=== PATIENT | female | born 1940 | race Caucasian/White ===

== ENCOUNTER 2024-02-18 15:39 | Inpatient (IN) ==
[2024-02-18] MEDS ORDERED: MoRPHine SULFATE 2 MG/ML CARP IV PRN ×2 (15:55→17:50)
[2024-02-18] MEDS: MoRPHine SULFATE 4 MG/ML 1 ML CARP\\VIAL IV PRN (16:06)
--- NOTE | 2024-02-18 16:06 | Emergency Department Note ---
History of Present Illness General Chief complaint: Fall Stated complaint: FALL Time Seen by Provider: 02/18/24 15:48 History of Present Illness Provider complaint: Right hip pain Onset (ago): hour(s) 1 Location: lower extremity and right 83-year-old female presents emergency department for right hip pain. Patient reports she fell approximate 1 hour ago by tripping over her heater. Patient denies hitting her head. No blood thinners. Home Medications Medication Instructions Recorded Confirmed Type alprazolam 0.25 mg tablet 0.25 mg PO TID PRN Anxiety 02/18/24 02/18/24 History amlodipine 2.5 mg tablet 2.5 mg PO QPM 02/18/24 02/18/24 History amlodipine 2.5 mg tablet 5 mg PO QAM 02/18/24 02/18/24 History aspirin 81 mg tablet,delayed 81 mg PO DAILY 02/18/24 02/18/24 History release benzonatate 200 mg capsule 200 mg PO TID 02/18/24 02/18/24 History buspirone 7.5 mg tablet 7.5 mg PO BID 02/18/24 02/18/24 History esomeprazole magnesium 40 mg 40 mg PO DAILY 02/18/24 02/18/24 History capsule,delayed release ibandronate 150 mg tablet 150 mg PO MO 02/18/24 02/18/24 History levothyroxine 50 mcg tablet 50 mcg PO DAILY 02/18/24 02/18/24 History metoprolol tartrate 25 mg tablet 25 mg PO BID 02/18/24 02/18/24 History rosuvastatin 5 mg tablet 5 mg PO 3XWK 02/18/24 02/18/24 History Allergies Allergy/AdvReac Type Severity Reaction Status Date / Time celecoxib Allergy Unknown hives Verified 02/18/24 17:10 penicillin G Allergy Unknown HIVES Verified 02/18/24 17:10 Sulfa (Sulfonamide Allergy Unknown HIVES Verified 02/18/24 17:10 Antibiotics) aspirin AdvReac Unknown ACID REFLUX Verified 02/18/24 17:10 blue dye AdvReac Unknown nausea and Unverified 02/18/24 17:10 vomiting duloxetine AdvReac Unknown nausea and Unverified 02/18/24 17:10 vomiting NSAIDS (Non-Steroidal AdvReac Unknown ACID REFLUX Verified 02/18/24 17:10 Anti-Inflamma Past Med/Surg History Problem List Femur fracture, right (Acute) Post-operative state (Acute 07/27/14) Medical History HLD (hyperlipidemia) HTN (hypertension) GERD (gastroesophageal reflux disease) Surgical History No pertinent past surgical history Social History Smoking Status: Never smoker Preferred Language: Filipino Feels Safe at Home: Yes Physical Exam Vital Signs Vital Signs - 24 hr 02/18/24 15:18 02/18/24 15:58 Temperature 36.7 C Temperature Source Oral Pulse Rate 72 70 Respiratory Rate 20 Blood Pressure 161/91 H Blood Pressure Mean 114 Pulse Oximetry 97 Oxygen Delivery Method Room Air Sepsis Recent Fever Within 48 Hours No Sepsis New/Unexplained Change in Mental Status No Sepsis Action Taken by Nursing No Action Required Physical Exam GENERAL: oriented to person, place, and time. appears well-developed and well- nourished. HENT: Exam performed. - Head: Normocephalic and atraumatic. EYES: Conjunctivae and EOM are normal. Right eye exhibits no discharge. Left eye exhibits no discharge. No scleral icterus. NECK: Normal range of motion. Neck supple. No JVD present. No pain on palpation of the C-spine. CV: Normal rate, regular rhythm, normal heart sounds and intact distal pulses. There is no peripheral edema. Palpable radial pulses bue. PULM/CHEST: Effort normal and breath sounds normal. No respiratory distress. No stridor. no wheezes. no rales. ABD: The abdomen is soft. There is no tenderness. MUSC: Pain on palpation of the right hip. Deformity of the right hip and femur. Palpable DP and PT pulse. NEURO: Motor and sensation grossly intact. Course Course 1548: The patient was evaluated in room B7. A complete history and physical exam was performed Cardiac monitoring: An order was placed for continuous cardiac monitoring. The monitor shows a rate of 70 with sinus rhythm interpreted by me 1651: Vital signs stable. Imaging shows right proximal femur fracture. Sent the images to Dr. Bryant via [place] text who reviewed them and agrees with plan to admit to medicine with orthopedics on consult. Administered Medications Morphine Sulfate (Morphine Sulfate 4 Mg/Ml 1 Ml Carp\Vial) 4 mg IV Q1H PRN PRN Reason: Severe Pain (Rating 7,8,9,10) Stop: 03/03/24 15:54 Last Admin: 02/18/24 16:06 Dose: 4 mg Documented By: LEESA Medical Decision Making Laboratory Data Attestation: I reviewed the patient's lab results. 02/18/24 16:04 02/18/24 16:04 Lab Results 02/18/24 02/18/24 Range/Units 16:04 Unknown WBC 7.60 (4.8-10.8) K/ul RBC 4.69 (4.20-5.40) M/uL Hgb 15.1 (12.0-16.0) g/dl Hct 43.5 (37.0-47.0) % MCV 92.8 (80.0-100.0) fL MCH 32.2 (25.0-34.0) pg MCHC 34.7 (32.0-36.0) g/dL RDW Std Deviation 40.0 (36.4-46.3) fL RDW Coeff of Angela 11.8 (11.5-14.5) % Plt Count 218 (130-400) K/uL MPV 10.1 (9.4-12.4) fL Immature Gran % (Auto) 0.4 % Neut % (Auto) 58.6 % Lymph % (Auto) 29.9 % Rolette % (Auto) 8.6 % Eos % (Auto) 1.8 % Baso % (Auto) 0.7 % Neut # (Auto) 4.46 (1.40-6.50) K/uL Lymph # (Auto) 2.27 (1.20-3.40) K/uL Rolette # (Auto) 0.65 H (0.11-0.59) K/uL Eos # (Auto) 0.14 (0.00-0.50) K/uL Baso # (Auto) 0.05 (0.00-0.20) K/uL Immature Gran # (Auto) 0.03 (0.01-0.20) K/uL PT 10.8 (9.0-12.0) Seconds INR 1.0 (0.9-1.1) APTT 26 (21-31) Seconds PTT Ratio 1.0 Sodium 138 (136-145) mmol/L Potassium 3.6 (3.5-5.1) mmol/L Chloride 100 (98-107) mmol/L Carbon Dioxide 28 (21-32) mmol/L Anion Gap 10 (3-11) BUN 13 (6-23) mg/dl Creatinine 0.55 L (0.6-1.2) mg/dl Est Cr Clr Drug Dosing Not Reportable Est GFR ( Amer) 99.8 ml/min Est GFR (Non-Af Amer) 86.1 ml/min BUN/Creatinine Ratio 23.6 H (10-20) Glucose 123 H (70-99(Fasting)) mg/dl Calcium 9.5 (8.6-10.3) mg/dl Total Bilirubin 1.9 H (0.2-1.0) mg/dl AST 22 (13-39) U/L ALT 17 (7-52) U/L Alkaline Phosphatase 44 (34-104) U/L Total Protein 7.7 (6.0-8.3) gm/dl Albumin 4.4 (3.4-5.0) gm/dl Globulin 3.3 (2.5-4.0) gm/dl Albumin/Globulin Ratio 1.3 (0.9-2) Urine Color Yellow Urine Appearance Clear (Clear) Urine pH 5.5 (4.5-7.5) Ur Specific [place] 1.018 (1.000-1.030) Urine Protein Negative (Negative) Urine Glucose (UA) Negative (Negative) Urine Ketones 1+ H (Negative) Urine Blood Negative (Negative) Urine Nitrite Negative (Negative) Urine Bilirubin Negative (Negative) Urine Urobilinogen Negative (Negative) Ur Leukocyte Esterase 1+ H (Negative) Urine WBC (Auto) 0-5 (0-5) /hpf Urine RBC (Auto) 0-2 (0-2) /hpf U Hyaline Cast (Auto) 0-2 (0-2) /lpf U Epithel Cells (Auto) 0-2 (0-2) /hpf Urine Bacteria (Auto) None Seen (None Seen) Imaging Data Attestation: I personally reviewed and interpreted this imaging study as follows: My Impression: Pelvis x-ray: Right proximal femur fracture that is angulated and displaced Radiologist's Impression: Chest X-Ray 02/18/24 15:56 SUPINE AP CHEST RADIOGRAPH CLINICAL HISTORY: Preoperative evaluation. COMPARISON STUDY: Chest radiograph May 14, 2014. FINDINGS: Lung volumes are normal. Lungs are clear. There is no pneumothorax or pleural effusion on supine exam. Cardiac size is normal. Mediastinal contours are normal. There is no evidence for pulmonary edema. IMPRESSION: No acute cardiopulmonary findings. ACT 112: Negative or not required by law. Electronically signed by: Brock Bar M.D. 02/18/2024 4:27 PM Femur X-Ray 02/18/24 15:57 XR femur RT 2V routine CLINICAL HISTORY: fall COMPARISON: Right knee radiographs July 27, 2014. FINDINGS: There is an acute moderately displaced, significantly angulated intertrochanteric/subtrochanteric fracture of the right femur. Associated soft tissue swelling is present. There is no distal right femoral fracture. Right knee arthroplasty is intact. No proximal right tibial or fibular fracture is present. IMPRESSION: 1. Acute displaced angulated intertrochanteric/subtrochanteric fracture of the right femur. 2. No distal right femoral fracture. Intact total right knee arthroplasty. ACT 112: Negative or not required by law. Electronically signed by: Brock Bar M.D. 02/18/2024 4:34 PM Pelvis X-Ray 02/18/24 15:57 XR pelvis 1-2V routine CLINICAL HISTORY: fall COMPARISON: None FINDINGS: Sacroiliac joints and symphysis pubis are intact. There are no acute fractures within the pelvis or left hip. There is an acute moderately displaced, significantly angulated intertrochanteric/subtrochanteric fracture of the right femur. IMPRESSION: Acute moderately displaced, significantly angulated intertrochanteric/subtrochanteric fracture of the right femur. ACT 112: Negative or not required by law. Electronically signed by: Brock Bar M.D. 02/18/2024 4:33 PM ECG Data Attestation: I personally reviewed and interpreted this ECG as follows: Rate (beats per minute): 75 Rhythm: + normal sinus ECG Intervals/blocks: + Normal RI and + Normal QT-c ECG ST segments: + Normal ST segments [facility] Narrative 1548: The patient was evaluated in room B7. A complete history and physical exam was performed Cardiac monitoring: An order was placed for continuous cardiac monitoring. The monitor shows a rate of 70 with sinus rhythm interpreted by me 1651: Vital signs stable. Imaging shows right proximal femur fracture. Sent the images to Dr. Bryant via [place] text who reviewed them and agrees with plan to admit to medicine with orthopedics on consult. Impression & Plan Femur fracture, right Discharge Plan Visit Data Chief Complaint: Fall Stated Complaint: FALL ED Provider: Jagdish Blackwell Discharge Problem: Femur fracture, right Patient Disposition: Admitted As Inpatient Forms Stand Alone Forms: [facility] Prescriptions Prescriptions: No Action benzonatate 200 mg capsule 200 mg PO TID amlodipine 2.5 mg tablet 2.5 mg PO QPM amlodipine 2.5 mg tablet 5 mg PO QAM aspirin 81 mg tablet,delayed release (DR/EC) 81 mg PO DAILY alprazolam 0.25 mg tablet 0.25 mg PO TID PRN (Reason: Anxiety) levothyroxine 50 mcg tablet 50 mcg PO DAILY esomeprazole magnesium 40 mg capsule,delayed release(DR/EC) 40 mg PO DAILY buspirone 7.5 mg tablet 7.5 mg PO BID rosuvastatin 5 mg tablet 5 mg PO 3XWK metoprolol tartrate 25 mg tablet 25 mg PO BID ibandronate 150 mg tablet 150 mg PO MO Rx Instructions: Takes on Referrals Referrals: Crystal Sumner D.O. [Outside Practitioners] - Discharge Problem: Femur fracture, right Qualifiers: Encounter type: initial encounter Femur location: unspecified portion of femur Fracture type: closed Fracture morphology: unspecified fracture morphology Q ualified Code(s): S72.91XA - Unspecified fracture of right femur, initial encounter for closed fracture
[2024-02-18 16:12] LABS: Appearance Urine Clear (Clear); Bacteria Urine Automated None Seen (None Seen); Bilirubin Urine Negative (Negative); Blood Urine Negative (Negative); Cast Urine Automated 0-2 /lpf (0-2); Color Urine Yellow; Epithelial Cell Urine Auto 0-2 /hpf (0-2); Glucose Urine UA Negative (Negative); Ketones Urine 1+ (Negative); Leukocyte Esterase Urine 1+ (Negative); Nitrite Urine Negative (Negative); Protein Urine Negative (Negative); RBC Urine Automated 0-2 /hpf (0-2); Specific Gravity Urine 1.018 (1.000-1.030); Urobilinogen Urine Negative (Negative); WBC Urine Automated 0-5 /hpf (0-5); pH Urine 5.5 (4.5-7.5)
[2024-02-18 16:28] LABS: Basophils # (auto) 0.05 K/uL (0.00-0.20); Basophils % (auto) 0.7 %; Eosinophils # (auto) 0.14 K/uL (0.00-0.50); Eosinophils % (auto) 1.8 %; Hematocrit (blood only) 43.5 % (37.0-47.0); Hemoglobin 15.1 g/dl (12.0-16.0); Immature Granulocytes # (auto) 0.03 K/uL (0.01-0.20); Immature Granulocytes % (auto) 0.4 %; Lymphocytes # (auto) 2.27 K/uL (1.20-3.40); Lymphocytes % (auto) 29.9 %; Mean Corpuscular Hemoglobin 32.2 pg (25.0-34.0); Mean Corpuscular Hgb Conc 34.7 g/dL (32.0-36.0); Mean Corpuscular Volume 92.8 fL (80.0-100.0); Mean Platelet Volume 10.1 fL (9.4-12.4); Monocytes # (auto) 0.65 K/uL (0.11-0.59); Monocytes % (auto) 8.6 %; Neutrophils # (auto) 4.46 K/uL (1.40-6.50); Neutrophils % (auto) 58.6 %; Platelet Count 218 K/uL (130-400); RDW Coefficient of Variation 11.8 % (11.5-14.5); Red Blood Count 4.69 M/uL (4.20-5.40)
--- NOTE | 2024-02-18 16:29 | XRay Report ---
SUPINE AP CHEST RADIOGRAPH CLINICAL HISTORY: Preoperative evaluation. COMPARISON STUDY: Chest radiograph May 14, 2014. FINDINGS: Lung volumes are normal. Lungs are clear. There is no pneumothorax or pleural effusion on s upine exam. Cardiac size is normal. Mediastinal contours are normal. There is no evidence for pulmona ry edema. IMPRESSION: No acute cardiopulmonary findings. ACT 112: Negative or not required by law. Electronically signed by: Brock Bar M.D. 02/18/2024 4:27 PM
--- NOTE | 2024-02-18 16:34 | XRay Report ---
XR pelvis 1-2V routine CLINICAL HISTORY: fall COMPARISON: None FINDINGS: Sacroiliac joints and symphysis pubis are intact. There are no acute fractures within the pelvis or left hip. There is an acute moderately displaced, significantly angulated intertrochanteric /subtrochanteric fracture of the right femur. IMPRESSION: Acute moderately displaced, significantly angulated intertrochanteric/subtrochanteric fra cture of the right femur. ACT 112: Negative or not required by law. Electronically signed by: Brock Bar M.D. 02/18/2024 4:33 PM
--- NOTE | 2024-02-18 16:35 | XRay Report ---
XR femur RT 2V routine CLINICAL HISTORY: fall COMPARISON: Right knee radiographs July 27, 2014. FINDINGS: There is an acute moderately displaced, significantly angulated intertrochanteric/subtroch anteric fracture of the right femur. Associated soft tissue swelling is present. There is no distal r ight femoral fracture. Right knee arthroplasty is intact. No proximal right tibial or fibular fractur e is present. IMPRESSION: 1. Acute displaced angulated intertrochanteric/subtrochanteric fracture of the right femur. 2. No distal right femoral fracture. Intact total right knee arthroplasty. ACT 112: Negative or not required by law. Electronically signed by: Brock Bar M.D. 02/18/2024 4:34 PM
[2024-02-18 16:43] LABS: Alanine Aminotransferase 17 U/L (7-52); Albumin Globulin Ratio 1.3 (0.9-2); Albumin Level 4.4 gm/dl (3.4-5.0); Alkaline Phosphatase 44 U/L (34-104); Anion Gap 10 (3-11); Aspartate Aminotransferase 22 U/L (13-39); BUN Creatinine Ratio 23.6 (10-20); Bilirubin,Total 1.9 mg/dl (0.2-1.0); Blood Urea Nitrogen 13 mg/dl (6-23); Calcium 9.5 mg/dl (8.6-10.3); Carbon Dioxide 28 mmol/L (21-32); Chloride 100 mmol/L (98-107); Est GFR (African American) 99.8 ml/min; Est GFR (Non-African American) 86.1 ml/min; Globulin 3.3 gm/dl (2.5-4.0); Glucose 123 mg/dl (70-99(Fasting)); Potassium 3.6 mmol/L (3.5-5.1); Sodium 138 mmol/L (136-145); Total Protein 7.7 gm/dl (6.0-8.3)
[2024-02-18 16:57] LABS: Partial Thromboplastin Time 26 Seconds (21-31); Prothrombin Time 10.8 Seconds (9.0-12.0)
--- NOTE | 2024-02-18 17:58 | History & Physical Report ---
Date of Service February 18, 2024 Assessment & Plan (1) Femur fracture, right: Plan: Patient presents with mechanical fall 1 hour prior to presentation Patient reports that her knee buckled and she fell down. CBC was unremarkable. CMP revealed mild elevation of bilirubin to 1.9. Pelvic x-ray showed acute mildly displaced, significantly angulated intertrochanteric/subtrochanteric fracture of right femur. Chest x-rayno acute cardiopulmonary finding EKG personally reviewed normal sinus rhythm with occasional PVC Pain control with Tylenol, oxycodone and morphine N.p.o. from midnight for possible intervention tomorrow Orthopedic on board; PT OT after intervention Patient denies chest pain; she is saturating well in room air. Chest x-ray and EKG are unremarkable for any significant finding. She appears well compensated. She appears to be at average risk for lu and post procedure complication. Chronic conditions; Hypertensioncontinue amlodipine, metoprolol Hypothyroidismcontinue levothyroxine Hyperlipidemia continue rosuvastatin Anxiety disordercontinue home meds Time spent evaluating patient, direct bedside care, chart review, placing orders, interpretation of diagnostic studies, discussion with consultants, patient, and family members, as well as other required patient management activities is 75 minutes Please note the above document was generated using voice recognition software. It may contain grammatical, syntax or spelling errors. Any formal questions or concerns about the content, text or information contained within the body of this dictation should be directly addressed to the provider for clarification History of Present Illness Chief Complaint: Mechanical fall Right hip pain Primary Care Provider: Jose Luis Gorman DO History obtained from interview with the patient and chart review. Past medical history of hypertension, anxiety, hypothyroidism, hyperlipidemia Patient presents with mechanical fall 1 hour prior to presentation Patient reports that her knee buckled and she fell down. She started to have pain on her right hip and came to the ED. She denies injuries to any other body part, did not hit her head or lose consciousness. She reports some tingling sensation over her right thigh; denies any other focal weakness/numbness. She denies fever, chills, chest pain, shortness of breath or abdominal pain. On presentation to the ED, she was hypertensive ,saturating well in room air. CBC was unremarkable. CMP revealed mild elevation of bilirubin to 1.9. Pelvic x-ray showed acute mildly displaced, significantly angulated intertrochanteric/subtrochanteric fracture of right femur. ED contacted on-call orthopedic; recommended admission for possible intervention. Patient was referred to be admitted under medicine service. Past medical history as above Past surgical history; history of knee replacement, section, hysterectomy Social history; used to smoke occasionally; quit 50 years ago. Does not drink alcohol Family history; no pertinent family history Allergies Allergy/AdvReac Type Severity Reaction Status Date / Time celecoxib Allergy Unknown hives Verified 02/18/24 17:10 penicillin G Allergy Unknown HIVES Verified 02/18/24 17:10 Sulfa (Sulfonamide Allergy Unknown HIVES Verified 02/18/24 17:10 Antibiotics) aspirin AdvReac Unknown ACID REFLUX Verified 02/18/24 17:10 blue dye AdvReac Unknown nausea and Unverified 02/18/24 17:10 vomiting duloxetine AdvReac Unknown nausea and Unverified 02/18/24 17:10 vomiting NSAIDS (Non-Steroidal AdvReac Unknown ACID REFLUX Verified 02/18/24 17:10 Anti-Inflamma Home Medications Medication Instructions Recorded Confirmed Type alprazolam 0.25 mg tablet 0.25 mg PO TID PRN Anxiety 02/18/24 02/18/24 History amlodipine 2.5 mg tablet 2.5 mg PO QPM 02/18/24 02/18/24 History amlodipine 2.5 mg tablet 5 mg PO QAM 02/18/24 02/18/24 History aspirin 81 mg tablet,delayed 81 mg PO DAILY 02/18/24 02/18/24 History release benzonatate 200 mg capsule 200 mg PO TID 02/18/24 02/18/24 History buspirone 7.5 mg tablet 7.5 mg PO BID 02/18/24 02/18/24 History esomeprazole magnesium 40 mg 40 mg PO DAILY 02/18/24 02/18/24 History capsule,delayed release ibandronate 150 mg tablet 150 mg PO MO 02/18/24 02/18/24 History levothyroxine 50 mcg tablet 50 mcg PO DAILY 02/18/24 02/18/24 History metoprolol tartrate 25 mg tablet 25 mg PO BID 02/18/24 02/18/24 History rosuvastatin 5 mg tablet 5 mg PO 3XWK 02/18/24 02/18/24 History Past Med/Surg History Problem List Femur fracture, right (Acute) Post-operative state (Acute 07/27/14) Medical History HLD (hyperlipidemia) HTN (hypertension) GERD (gastroesophageal reflux disease) Surgical History No pertinent past surgical history Social History Smoking Status: Never smoker Preferred Language: [place] Citizen Feels Safe at Home: Yes Review of Systems Review of Systems: All systems reviewed & are unremarkable except as noted in Subjective Physical Exam Physical Exam: Constitutional: Alert oriented x 3; not in distress. Respiratory: Bilateral vesicular breath sound Cardiovascular: RRR, no murmur, no edema Vessels: no JVD or carotid bruit Chest: normal inspection of chest Abdomen: normal bowel sounds, soft, nontender, no hepatosplenomegaly Musculoskeletal: Swelling present on her right thigh; her leg is externally rotated. Pedal pulse intact Skin: no rashes, warm and dry normal turgor Neurologic: PERRL, EOMI, accommodation nl, no face palsy, no dysarthria CN's II- XI intact bilaterally and moves all extremities Psychiatric: A+Ox3, euthymic affect Results & Data Results & Data Vital Signs (Past 12 Hours) Vital Signs Temp Pulse Resp BP Pulse Ox O2 Del Method 02/18/24 15:58 70 02/18/24 15:18 36.7 C 72 20 161/91 H 97 Room Air (1) Femur fracture, right Encounter type: initial encounter Femur location: unspecified portion of femur Fracture morphology: unspecified fracture morphology Fracture type: closed Qualified Code(s): S72.91XA - Unspecified fracture of right femur, initial encounter for closed fracture
[2024-02-18] MEDS: SODIUM CHLORIDE 0.9% 1,000 ML IV SCH (18:07)
[2024-02-18] MEDS: TRANEXAMIC ACID / 0.7% NACL 1,000 MG/100 ML BAG IV ONE (18:07)
[2024-02-18] MEDS: amLODIPine BESYLATE 5 MG TAB PO SCH (21:36)
[2024-02-18] MEDS: MoRPHine SULFATE 2 MG/ML CARP IV PRN (21:36)
[2024-02-18] MEDS: busPIRone 7.5 MG TAB PO SCH (21:36)
[2024-02-18] MEDS: METOPROLOL TARTRATE 25 MG TAB PO SCH (21:36)
[2024-02-19] MEDS: ONDANSETRON INJ 2 MG/ML 2 ML VIAL IV PRN (00:02)
[2024-02-19] MEDS: oxyCODONE HCL IR 5 MG TAB (IMMEDIATE RELEASE) PO PRN (05:42)
[2024-02-19] MEDS: LEVOTHYROXINE SODIUM 25 MCG TABLET PO SCH (05:42)
[2024-02-19 06:09] LABS: Basophils # (auto) 0.04 K/uL (0.00-0.20); Basophils % (auto) 0.4 %; Eosinophils # (auto) 0.06 K/uL (0.00-0.50); Eosinophils % (auto) 0.7 %; Hematocrit (blood only) 38.4 % (37.0-47.0); Hemoglobin 13.3 g/dl (12.0-16.0); Immature Granulocytes # (auto) 0.02 K/uL (0.01-0.20); Immature Granulocytes % (auto) 0.2 %; Lymphocytes # (auto) 2.47 K/uL (1.20-3.40); Lymphocytes % (auto) 27.6 %; Mean Corpuscular Hemoglobin 32.7 pg (25.0-34.0); Mean Corpuscular Hgb Conc 34.6 g/dL (32.0-36.0); Mean Corpuscular Volume 94.3 fL (80.0-100.0); Mean Platelet Volume 10.2 fL (9.4-12.4); Monocytes % (auto) 11.2 %; Neutrophils # (auto) 5.37 K/uL (1.40-6.50); Neutrophils % (auto) 59.9 %; Platelet Count 198 K/uL (130-400); RDW Coefficient of Variation 11.9 % (11.5-14.5); RDW Standard Deviation 41.6 fL (36.4-46.3); Red Blood Count 4.07 M/uL (4.20-5.40); White Blood Count 8.96 K/ul (4.8-10.8)
[2024-02-19 06:21] LABS: Albumin Globulin Ratio 1.4 (0.9-2); Albumin Level 3.7 gm/dl (3.4-5.0); BUN Creatinine Ratio 22.2 (10-20); Bilirubin,Total 1.9 mg/dl (0.2-1.0); Calcium 8.4 mg/dl (8.6-10.3); Est GFR (African American) 100.4 ml/min; Est GFR (Non-African American) 86.7 ml/min; Globulin 2.7 gm/dl (2.5-4.0); Potassium 3.5 mmol/L (3.5-5.1); Total Protein 6.4 gm/dl (6.0-8.3)
[2024-02-19] MEDS: amLODIPine BESYLATE 5 MG TAB PO SCH (07:22)
[2024-02-19] MEDS: PANTOprazole 40 MG TAB PO SCH (07:23)
--- NOTE | 2024-02-19 08:20 | Electrocardiogram Report ---
Test Reason : Blood Pressure : / mmHG Vent. Rate : 075 BPM Atrial Rate : 075 BPM P-R Int : 182 ms QRS Dur : 078 ms QT Int : 404 ms P-R-T Axes : 073 044 047 degrees QTc Int : 451 ms Sinus rhythm with occasional Premature ventricular complexes Otherwise normal ECG When compared with ECG of 14-MAY-2014 12:31, Premature ventricular complexes are now Present Confirmed by Emiliano Beverly ([id number]) on 02/19/2024 8:20:25 AM Referred By: Jose Luis Gorman Confirmed By:Emiliano Beverly
--- NOTE | 2024-02-19 09:03 | Orthopedic Consultation ---
Date of Service February 19, 2024 Assessment & Plan (1) Femur fracture, right: NPO. Will plan on IM nailing of the right femur today either with Dr. Bryant or Dr. Ross. Procedure was explained to the patient. Continue bedrest. History of Present Illness Reason for Consultation: . Requesting Physician: . Attending Physician: Magdiel Aldridge MD . Stephanie is a 83 year old patient admitted yesterday to the hospitalist service with a right hip fracture. She says that her knee buckled and gave out yesterday, causing her to fall. No hip pain prior to the episode. 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 Allergies Allergy/AdvReac Type Severity Reaction Status Date / Time celecoxib Allergy Unknown hives Verified 02/18/24 17:10 penicillin G Allergy Unknown HIVES Verified 02/18/24 17:10 Sulfa (Sulfonamide Allergy Unknown HIVES Verified 02/18/24 17:10 Antibiotics) aspirin AdvReac Unknown ACID REFLUX Verified 02/18/24 17:10 blue dye AdvReac Unknown nausea and Unverified 02/18/24 17:10 vomiting duloxetine AdvReac Unknown nausea and Unverified 02/18/24 17:10 vomiting NSAIDS (Non-Steroidal AdvReac Unknown ACID REFLUX Verified 02/18/24 17:10 Anti-Inflamma Home Medications Medication Instructions Recorded Confirmed Type alprazolam 0.25 mg tablet 0.25 mg PO TID PRN Anxiety 02/18/24 02/18/24 History amlodipine 2.5 mg tablet 2.5 mg PO QPM 02/18/24 02/18/24 History amlodipine 2.5 mg tablet 5 mg PO QAM 02/18/24 02/18/24 History aspirin 81 mg tablet,delayed 81 mg PO DAILY 02/18/24 02/18/24 History release benzonatate 200 mg capsule 200 mg PO TID 02/18/24 02/18/24 History buspirone 7.5 mg tablet 7.5 mg PO BID 02/18/24 02/18/24 History esomeprazole magnesium 40 mg 40 mg PO DAILY 02/18/24 02/18/24 History capsule,delayed release ibandronate 150 mg tablet 150 mg PO MO 02/18/24 02/18/24 History levothyroxine 50 mcg tablet 50 mcg PO DAILY 02/18/24 02/18/24 History metoprolol tartrate 25 mg tablet 25 mg PO BID 02/18/24 02/18/24 History rosuvastatin 5 mg tablet 5 mg PO 3XWK 02/18/24 02/18/24 History Past Med/Surg History Problem List Femur fracture, right (Acute) Post-operative state (Acute 07/27/14) Medical History HLD (hyperlipidemia) HTN (hypertension) GERD (gastroesophageal reflux disease) Surgical History No pertinent past surgical history Social History Smoking Status: Never smoker Hx Alcohol Use: No Hx Substance Use: No Preferred Language: Lao Communication Ability: Effective Fishing Tool Supervisor Required: No Beliefs That Will Affect Care: None Current Living Situation: Spouse Other Information That Helps Us Care for You: No Feels Safe at Home: Yes Safety Concerns: Feels Safe At This Time Assistive Devices: None Review of Systems All systems reviewed & are unremarkable except as noted in HPI & below. Physical Exam .alert and oriented. NAD Right leg in traction presently. Tender to palpation around hip. Well healed scar from previous tka. No knee effusion. Able to dorsiflex and plantarflex. NVI. Skin intact around the hip. Results & Data Results & Data Laboratory Results . Diagnostic Findings .xrays of the right femur and pelvis show a displaced intertroch/subtroch femur fx. PG Care Time/CCT Total # of Minutes Spent Total Time Spent with Patient: Total time spent is greater than 50% in coordination of care (as documented) at patient's floor/unit and/or counseling patient: Coding Level of Care Code 21320 IN/OBS CONSULT LVL 4,60M Diagnoses Femur fracture, right S72.91XA Encounter type: initial encounter Femur location: unspecified portion of femur Fracture morphology: unspecified fracture morphology Fracture type: closed (1) Femur fracture, right Encounter type: initial encounter Femur location: unspecified portion of femur Fracture morphology: unspecified fracture morphology Fracture type: closed Qualified Code(s): S72.91XA - Unspecified fracture of right femur, initial encounter for closed fracture
--- NOTE | 2024-02-19 13:25 | Hospitalist Progress Note ---
Date of Service February 19, 2024 Assessment & Plan (1) Femur fracture, right: Plan: Patient presents with mechanical fall 1 hour prior to presentation Patient reports that her knee buckled and she fell down. CBC was unremarkable. CMP revealed mild elevation of bilirubin to 1.9. Pelvic x-ray showed acute mildly displaced, significantly angulated intertrochanteric/subtrochanteric fracture of right femur. Chest x-rayno acute cardiopulmonary finding EKG personally reviewed normal sinus rhythm with occasional PVC Patient to undergo surgery by orthopedics today Continue pain control Tylenol, oxycodone and morphine PT OT after intervention Will need DVT prophylaxis to be initiated after surgery Chronic conditions; Hypertensioncontinue amlodipine, metoprolol Hypothyroidismcontinue levothyroxine Hyperlipidemia continue rosuvastatin Anxiety disordercontinue home meds Time spent evaluating patient, direct bedside care, chart review, placing orders, interpretation of diagnostic studies, discussion with consultants, patient, and family members, as well as other required patient management activities is 75 minutes Please note the above document was generated using voice recognition software. It may contain grammatical, syntax or spelling errors. Any formal questions or concerns about the content, text or information contained within the body of this dictation should be directly addressed to the provider for clarification Admission and Anticipated Discharge Date Admission Date: February 18, 2024 Subjective Patient seen and examined at bedside. She is comfortable lying in the bed; not in distress Reports that her pain is well-controlled on current medication Review of Systems Review of Systems: All systems reviewed & are unremarkable except as noted in Subjective Physical Exam Physical Exam: Constitutional: Alert oriented x 3; not in distress. Respiratory: Bilateral vesicular breath sound Cardiovascular: RRR, no murmur, no edema Vessels: no JVD or carotid bruit Chest: normal inspection of chest Abdomen: normal bowel sounds, soft, nontender, no hepatosplenomegaly Musculoskeletal: Swelling present on her right thigh; her leg is externally rotated. Skin: no rashes, warm and dry normal turgor Neurologic: PERRL, EOMI, accommodation nl, no face palsy, no dysarthria CN's II- XI intact bilaterally and moves all extremities Psychiatric: A+Ox3, euthymic affect Results & Data Results & Data Vital Signs (Past 12 Hours) Vital Signs Temp Pulse Pulse Resp BP Pulse Ox O2 Del Method 02/19/24 10:58 37.2 C 63 20 134/69 92 Room Air 02/19/24 07:50 36.9 C 62 20 129/65 92 Room Air 02/19/24 07:00 56 L 02/19/24 03:18 36.9 C 53 L 18 121/69 93 Room Air (1) Femur fracture, right Encounter type: initial encounter Femur location: unspecified portion of femur Fracture morphology: unspecified fracture morphology Fracture type: closed Qualified Code(s): S72.91XA - Unspecified fracture of right femur, initial encounter for closed fracture
[2024-02-19] MEDS: LACTATED RINGER'S 1,000 ML IV SCH (13:55)
[2024-02-19] MEDS ORDERED: ePHEDrine sulfate 50 MG/ML AMP IV PRN (14:44)
[2024-02-19] MEDS ORDERED: ATROPINE SULFATE 0.1 MG/ML 10ML SYR IV PRN (14:44)
[2024-02-19] MEDS ORDERED: ONDANSETRON INJ 2 MG/ML 2 ML VIAL IV PRN (14:44)
[2024-02-19] MEDS ORDERED: fentaNYL citrate PF 100 MCG/2 ML VIAL IV PRN (14:44)
--- NOTE | 2024-02-19 14:44 | Anesthesiology Consultation ---
Date of Service February 19, 2024 Assessment & Plan Chart Review Chart Review: butcher chicken and fish initiated History Surgery Operation Date: 02/19/24 12:15 Proposed Procedures p Right Troch Nail - Cain Bryant MD Height/Weight Height: 5 ft 3 in Weight: 66.4 kg Allergies Allergy/AdvReac Type Severity Reaction Status Date / Time celecoxib Allergy Unknown hives Verified 02/19/24 13:54 penicillin G Allergy Unknown HIVES Verified 02/19/24 13:54 Sulfa (Sulfonamide Allergy Unknown HIVES Verified 02/19/24 13:54 Antibiotics) aspirin AdvReac Unknown ACID REFLUX Verified 02/19/24 13:54 blue dye AdvReac Unknown nausea and Verified 02/19/24 13:54 vomiting duloxetine AdvReac Unknown nausea and Verified 02/19/24 13:54 vomiting NSAIDS (Non-Steroidal AdvReac Unknown ACID REFLUX Verified 02/19/24 13:54 Anti-Inflamma Medications Home Medications Medication Instructions Recorded Confirmed Last Taken alprazolam 0.25 mg tablet 0.25 mg PO TID PRN Anxiety 02/18/24 02/18/24 Unknown amlodipine 2.5 mg tablet 2.5 mg PO QPM 02/18/24 02/18/24 Unknown amlodipine 2.5 mg tablet 5 mg PO QAM 02/18/24 02/18/24 Unknown aspirin 81 mg tablet,delayed 81 mg PO DAILY 02/18/24 02/18/24 Unknown release benzonatate 200 mg capsule 200 mg PO TID 02/18/24 02/18/24 Unknown buspirone 7.5 mg tablet 7.5 mg PO BID 02/18/24 02/18/24 Unknown esomeprazole magnesium 40 mg 40 mg PO DAILY 02/18/24 02/18/24 Unknown capsule,delayed release ibandronate 150 mg tablet 150 mg PO MO 02/18/24 02/18/24 Unknown levothyroxine 50 mcg tablet 50 mcg PO DAILY 02/18/24 02/18/24 Unknown metoprolol tartrate 25 mg tablet 25 mg PO BID 02/18/24 02/18/24 Unknown rosuvastatin 5 mg tablet 5 mg PO 3XWK 02/18/24 02/18/24 Unknown Active Medications Generic Name Dose Route Start Last Admin Trade Name Freq PRN Reason Stop Dose Admin Amlodipine Besylate 2.5 mg 02/18/24 21:00 02/18/24 21:36 Amlodipine Besylate 5 Mg Tab PO 03/19/24 20:59 2.5 mg QPM JANIE Administration Amlodipine Besylate 5 mg 02/19/24 09:00 02/19/24 07:22 Amlodipine Besylate 5 Mg Tab PO 03/20/24 08:59 5 mg QAM JANIE Administration Buspirone HCl 7.5 mg 02/18/24 21:00 02/19/24 07:22 Buspirone 7.5 Mg Tab PO 03/19/24 20:59 7.5 mg BID JANIE Administration Sodium Chloride 1,000 mls @ 75 mls/hr 02/18/24 18:00 02/19/24 07:22 Nss IV 03/19/24 17:59 75 mls/hr .[id number] JANIE Administration Lactated Ringer's 1,000 mls @ 15 mls/hr 02/19/24 13:45 02/19/24 13:55 Lr IV 03/20/24 13:44 15 mls/hr .Q24H JANIE Administration Levothyroxine Sodium 25 mcg 02/19/24 06:30 02/19/24 05:42 Levothyroxine Sodium 25 Mcg Tablet PO 03/20/24 06:29 25 mcg DAILYBB JANIE Administration Metoprolol Tartrate 25 mg 02/18/24 21:00 02/19/24 07:23 Metoprolol Tartrate 25 Mg Tab PO 03/19/24 20:59 Not Given BID JANIE Morphine Sulfate 2 mg 02/18/24 17:53 02/18/24 21:36 Morphine Sulfate 2 Mg/Ml Carp IV 03/03/24 17:49 2 mg Q4H PRN Administration Severe Pain (Scale 7, 8, 9,10) Ondansetron HCl 4 mg 02/18/24 23:51 02/19/24 00:02 Ondansetron Inj 2 Mg/Ml 2 Ml Vial IV 03/19/24 23:50 4 mg Q6H PRN Administration Nausea And Vomiting Oxycodone HCl 5 mg 02/18/24 17:50 02/19/24 05:42 Oxycodone Hcl Ir 5 Mg Tab (Immediate Release) PO 03/03/24 17:49 5 mg Q6H PRN Administration Moderate Pain (Scale 4, 5, 6) Pantoprazole Sodium 40 mg 02/19/24 09:00 02/19/24 07:23 Pantoprazole 40 Mg Tab PO 03/20/24 08:59 40 mg DAILY JANIE Administration NPO Date Last Intake of Fluids: 02/18/24 Time Last Intake of Fluids: 08:30 Date Last Intake of Solids: 02/18/24 Time Last Intake of Solids: 08:30 Past Medical History Medical History HLD (hyperlipidemia) HTN (hypertension) GERD (gastroesophageal reflux disease) Past Surgical History Surgical History No pertinent past surgical history Social History Smoking Status: Never smoker Hx Alcohol Use: No Hx Substance Use: No Physical Exam Vital Signs Last Vital Signs Temp 98.2 F 02/19/24 13:38 Pulse 72 02/19/24 13:38 Resp 20 02/19/24 13:38 BP 171/65 H 02/19/24 13:38 Pulse Ox 94 02/19/24 13:38 O2 Del Method Room Air 02/19/24 13:38 Testing Laboratory Results 02/19/24 05:27 02/19/24 05:27 PT 10.8 Seconds (9.0-12.0) 02/18/24 16:04 INR 1.0 (0.9-1.1) 02/18/24 16:04 APTT 26 Seconds (21-31) 02/18/24 16:04 Urine Color Yellow 02/18/24 Unknown Urine Appearance Clear (Clear) 02/18/24 Unknown Urine pH 5.5 (4.5-7.5) 02/18/24 Unknown Ur Specific [place] 1.018 (1.000-1.030) 02/18/24 Unknown Urine Protein Negative (Negative) 02/18/24 Unknown Urine Glucose (UA) Negative (Negative) 02/18/24 Unknown Urine Ketones 1+ (Negative) H 02/18/24 Unknown Urine Nitrite Negative (Negative) 02/18/24 Unknown Ur Leukocyte Esterase 1+ (Negative) H 02/18/24 Unknown Urine WBC (Auto) 0-5 /hpf (0-5) 02/18/24 Unknown Urine RBC (Auto) 0-2 /hpf (0-2) 02/18/24 Unknown U Hyaline Cast (Auto) 0-2 /lpf (0-2) 02/18/24 Unknown U Epithel Cells (Auto) 0-2 /hpf (0-2) 02/18/24 Unknown Urine Bacteria (Auto) None Seen (None Seen) 02/18/24 Unknown Blood Type A Positive 02/19/24 11:11 Antibody Screen NEGATIVE 02/19/24 11:11 Electrocardiogram Date: 02/18/24 Sinus rhythm with occasional Premature ventricular complexes, rate 75 bpm Otherwise normal ECG When compared with ECG of 14-MAY-2014 12:31, Premature ventricular complexes are now Present Confirmed by Emiliano Beverly ([id number]) on 02/19/2024 8:20:25 AM Chest X-Ray Date: 02/18/24 Findings: + NAD
[2024-02-19] MEDS ORDERED: PROPOFOL IV EMULSION 10 MG/ML 20 ML VIAL IV ONE ×3 (14:48→17:16)
[2024-02-19] MEDS ORDERED: LIDOCAINE 2% 2 ML VIAL/AMP(20MG/ML) INFIL ONE (14:48)
[2024-02-19] MEDS ORDERED: BUPIVACAINE 0.5 % 5 MG/1 ML PF 10ML VIAL ONE (14:59)
[2024-02-19] MEDS: TRANEXAMIC ACID 1,000 MG **IV Pre-op IV ONE (15:34)
[2024-02-19] MEDS ORDERED: fentaNYL citrate PF 100 MCG/2 ML VIAL ONE (15:43)
[2024-02-19] MEDS ORDERED: PHENYLEPHRINE HCL 10 MG/ML VIAL ONE (16:44)
[2024-02-19] MEDS ORDERED: ePHEDrine sulfate 50 MG/ML AMP ONE (16:44)
--- NOTE | 2024-02-19 18:22 | Anesthesiology Progress Note ---
Date of Service February 19, 2024 Anesthesia Post Procedure Vital Signs Vital Signs: Temp Pulse Pulse Pulse Resp BP BP 02/19/24 18:15 65 18 143/63 H 02/19/24 18:07 97.3 F L 69 18 98/58 L 02/19/24 13:38 98.2 F 72 20 171/65 H 02/19/24 10:58 99.0 F 63 20 134/69 02/19/24 07:50 98.4 F 62 20 129/65 02/19/24 07:00 56 L 02/19/24 03:18 98.4 F 53 L 18 121/69 02/19/24 00:00 61 02/18/24 22:52 98.8 F 63 18 120/67 02/18/24 20:50 70 02/18/24 19:53 98.6 F 18 169/65 H 02/18/24 19:00 66 22 161/73 H Pulse Ox O2 Del Method O2 Flow Rate 02/19/24 18:15 94 Nasal Cannula 2 02/19/24 18:07 98 Nasal Cannula 2 02/19/24 13:38 94 Room Air 02/19/24 10:58 92 Room Air 02/19/24 07:50 92 Room Air 02/19/24 07:00 02/19/24 03:18 93 Room Air 02/19/24 00:00 02/18/24 22:52 92 Room Air 02/18/24 20:50 02/18/24 19:53 95 Room Air 02/18/24 19:00 96 Pain Intensity Right Hip: Pain Intensity: 7 Transfer of Care Handoff Completed per policy Notes Mental Status: alert / awake / arousable and participated in evaluation Patient Amnestic to Procedure: Yes Nausea / Vomiting: adequately controlled Pain: adequately controlled Airway Patency, RR, SpO2: stable & adequate BP & HR: stable & adequate Hydration State: stable & adequate Neuraxial Anesthesia: was administered and sensory block is resolving Anesthetic Complications: no major complications apparent and Pt Satisfied with anesthetic care
--- NOTE | 2024-02-19 18:30 | Operative Report ---
PG Post Operative Report Pre & Post Diagnosis Operation Date: 02/19/24 12:15 Pre-Op Diagnosis: Femur fracture, right Post-Op Diagnosis: Femur fracture, right I identified the patient and participated in the time-out.: Yes Procedure Operation Date: 02/19/24 12:15 Actual Procedures p Right Femur Fracture Closed Reduction and Internal Fixation with a Cepha lomedullary Trochanteric Fixation Nail(Right) - Cain Bryant MD Surgeon Cain Bryant MD Stock Speculator Bel Mcdonnell PA-C Estimated Blood Loss 100 Findings See Below Atypical subtrochanteric femoral shaft fracture with characteristic beaking, consistent with bisphosphonate-related fracture. Reduced with closed manipulation. All Synthe[employer] implants: 11 mm/130 degree titanium cannulated trochanteric fixation nail of 400 mm length. TFNA fenestrated screw 90 mm. 5 mm distal interlock screw measuring 54 mm. Specimens none Anesthesia Type MAC Spinal Regional Complications none Disposition Accompanied Patient To Recovery: Yes Disposition: Recovery Room Indications 83-year-old female sustained a fall when her knee gave way resulting in immediate pain and deformity. She was brought to the emergency room where she was diagnosed with a femoral shaft fracture in the subtrochanteric region. She was evaluated in the emergency room and cleared for surgery. I recommended surgical stabilization of this complete fracture. I reviewed the risk, benefits, and alternatives which were minimal with the patient and her friend at the bedside. After discussion, they were interested in proceeding with surgical stabilization to restore function. Informed consent was documented in the preoperative holding area. Description of Procedure On the day of surgery should be was greeted in the preoperative holding area and the informed consent was reviewed and confirmed. The surgical site was then identified by the patient and signed by myself. The patient was taken to the operating room. Anesthesia was induced. Spinal anesthetic was performed in the operating room by the anesthesia team. She was then transferred onto the fracture table. The patient was then positioned on the fracture table. All ricky prominences were well padded. The operative foot was placed in the fracture boot with abundant padding. The well leg was secured. We then positioned the lower extremities in a scissor fashion with a non-op leg flexed down to allow visualization with fluoroscopy which was confirmed before we prepped and draped. Surgical timeout was called and verified by all present. Antibiotics and 1 g of TXA were infused, and equipment was available and functional. We began with provisional fluoroscopic visualization.. Gentle in-line traction pulled the fracture out to length. Rotation was judged based on fracture keys.. Flexion and adduction were used to adjust the reduction and allow access to the greater trochanter. The greater trochanter was visible for the start point The leg was then prepped and draped in usual sterile fashion. Surgical timeout was reconfirmed. We initiated the surgical internal fixation portion with finding the start point with the tip of the greater trochanter. Fluoroscopic guidance was used and a small poke hole was established. The start point was confirmed on fluoroscopy in AP and lateral planes and the pin was advanced using a mallet. An incision was made about the pin to allow access for the reamers. The pin was then advanced past the lesser trochanter, and its position was confirmed using AP and lateral fluoroscopy. Using the protective sleeve, the opening reamer was advanced under power with fluoroscopic guidance over the guidepin. The start point awl was used to manipulate the proximal fragment. Using fluoroscopy, were able to align the site reasonably to pass the guidewire. The reduction wire was then advanced down the distal femur to the level of the superior pole of the patella. Measurement was taken from the tip of the trochanter down to the end of the guidewire, and the nail length was selected. We then began sequential reaming. We started with 8.5 and used fluoroscopy to guide our reaming. We carefully watched with fluoroscopy to pass the reamers to the fracture zone due to the residual angulation because of the deformity. We advanced the reaming in gradual increments up to a 12.5. An 11 mm nail was loaded onto the jig and advanced manually down the canal, while ensuring maintenance of the reduction on fluoroscopy. We then tapped it down into place until we achieve the good position for our cephalo-medullary screw. The cannula was placed on the jig to allow positioning of the cephalo-medullary screw. The skin incision was made in the appropriate spot. The jig cannulas were then placed against the lateral cortex. The cephalo-medullary screw guidepin was advanced towards the femoral head. The center-center position was confirmed on fluoroscopy in AP and lateral planes. The length of the screw was measured off the guide. The fenestrated screw screw was then opened on the back table and prepared on the screwdriver. The lateral cortical opening drill, followed by the triple drill reamer for the helical blade was advanced under fluoroscopic guidance. The screw was advanced over the guidepin to appropriate position. The femoral neck screw was locked in rotation and then the traction was taken off. Fluoroscopy confirmed maintenance of reduction and adequate position of the implant. We then gently oscillated rotation at the foot and try to compress the fracture axially. Fracture reduction remained acceptable. Attention was then directed distally to perform the interlock screws in using perfect [place] technique. 1 interlock screw was placed with a 5 mm diameter in the dynamic hole. The length was measured using a depth gauge, with fluoroscopic guidance. This completed the fixation. This completed the fixation of the fracture. Fluoroscopy was used in both AP and lateral planes to evaluate the entirety of the fracture and implant. Reduction and implant positions were acceptable. The wounds were then thoroughly irrigated with bulb syringe and normal saline. The deep fascial layer was approximated with 0 Vicryl suture. The dermal layer was approximated using 2-0 Vicryl suture. The final skin closure was completed with tracy. Wounds were dressed with sterile Xeroform, sterile gauze, and Ioban over ABDs. The patient tolerated procedure well, awoke from anesthesia without complication, was extubated in the operating room, and transferred to the PACU in stable condition. Disposition: The patient be weightbearing as tolerated. I recommended routine DVT prophylaxis consisting of twice daily aspirin. DVT prophylaxis should last 6 weeks. 24 hours of antibiotic prophylaxis should be continued. Physician insurance assistant attestation: Bel Mcdonnell PA-C was present and scrubbed for the duration of the case. Skilled assistance was essential to prepping/draping, patient positioning, retraction, and assistance with wound closure. Additionally, skilled assistance with reduction maneuvers while the reamers were being passed was essential, I attest to the content of the Intraoperative Record and any orders documented therein. Any exceptions are noted below.
[2024-02-19] MEDS: ceFAZolin 2000MG 2,000 MG/15 ML SYR IV ONE (18:57)
--- NOTE | 2024-02-19 19:19 | XRay Report ---
XR femur RT 2V routine CLINICAL HISTORY: s/p right femur internal fixation TECHNIQUE: 2 radiographic views of the right femur were obtained. Comparison: Comparison is made to right femur radiograph 02/18/2024 FINDINGS: Postsurgical changes of right femur internal fixation. Fracture fragments are in near-anatomic alignm ent. A total knee arthroplasty is seen. IMPRESSION: Postsurgical appearance status post internal fixation of femoral fracture. ACT 112: Negative or not required by law. Electronically signed by: Yoni Fajardo M.D. 02/19/2024 7:18 PM
--- NOTE | 2024-02-19 20:04 | Fluoroscopy Report ---
FL femur RT 2V CLINICAL HISTORY: Right trochnail TECHNIQUE: 8 views were obtained with the C-arm in the OR with the above procedure. Total fluoroscopy time was 140.1 seconds. Radiation dose was 19.27 mGy. Comparison: Comparison is made to right femur radiograph 02/18/2024 FINDINGS/IMPRESSION: Intraoperative images were obtained of right trochanteric nail placement. Please correlate with intraoperative fluoroscopy and operative report. ACT 112: Negative or not required by law. Electronically signed by: Yoni Fajardo M.D. 02/19/2024 8:03 PM
[2024-02-19] MEDS: ALPRAZolam 0.25 MG TABLET PO PRN (20:14)
[2024-02-19] MEDS: BENZONATATE 100 MG CAPSULE PO SCH (20:15)
[2024-02-19] MEDS: BUPIVACAINE/EPINEPHRINE 0.5% MPF 1:200,000 30 ML VIAL ONE (20:18)
[2024-02-20] MEDS ORDERED: ceFAZolin 2000MG 2,000 MG/15 ML SYR IV SCH (00:15)
[2024-02-20] MEDS: ceFAZolin 2000MG 2,000 MG/15 ML SYR IV SCH (00:22)
[2024-02-20] MEDS ORDERED: TRANEXAMIC ACID 100 MG/ML 10 ML VIAL IV SCH (06:00)
[2024-02-20 07:00] LABS: Basophils # (auto) 0.05 K/uL (0.00-0.20); Basophils % (auto) 0.5 %; Hematocrit (blood only) 37.5 % (37.0-47.0); Hemoglobin 13.2 g/dl (12.0-16.0); Immature Granulocytes # (auto) 0.03 K/uL (0.01-0.20); Immature Granulocytes % (auto) 0.3 %; Lymphocytes # (auto) 1.99 K/uL (1.20-3.40); Lymphocytes % (auto) 19.5 %; Mean Corpuscular Hemoglobin 33.2 pg (25.0-34.0); Mean Corpuscular Hgb Conc 35.2 g/dL (32.0-36.0); Mean Corpuscular Volume 94.2 fL (80.0-100.0); Mean Platelet Volume 10.4 fL (9.4-12.4); Monocytes # (auto) 1.16 K/uL (0.11-0.59); Monocytes % (auto) 11.4 %; Neutrophils # (auto) 6.85 K/uL (1.40-6.50); Neutrophils % (auto) 67.3 %; Platelet Count 180 K/uL (130-400); RDW Coefficient of Variation 11.7 % (11.5-14.5); RDW Standard Deviation 40.4 fL (36.4-46.3); Red Blood Count 3.98 M/uL (4.20-5.40); White Blood Count 10.18 K/ul (4.8-10.8)
[2024-02-20 07:34] LABS: BUN Creatinine Ratio 20.4 (10-20); Calcium 8.1 mg/dl (8.6-10.3); Creatinine Clr Calc Pharmacy 78.3 ml/min; Est GFR (African American) 103.7 ml/min; Est GFR (Non-African American) 89.5 ml/min; Potassium 3.5 mmol/L (3.5-5.1)
[2024-02-20] MEDS: ROSUVASTATIN CALCIUM 5 MG TAB PO SCH (08:29)
[2024-02-20] MEDS: POLYETHYLENE (MIRALAX) 17 GM PACK PO PRN (08:29)
[2024-02-20] MEDS: ACETAMINOPHEN 325 MG TAB PO PRN (10:36)
--- NOTE | 2024-02-20 12:01 | Orthopedic Progress Note ---
Date of Service February 20, 2024 Assessment & Plan (1) Femur fracture, right: Plan 83-year-old female POD# 1 s/p closed reduction internal fixation of right subtrochanteric fracture with long IM nail, cannulated femoral head/neck compression screw, and distal locking screw. Plan: 1. DVT prophylaxis w/ ASA 81 mg BID. 2. Con't PT/OT as tolerated. WBAT on RLE. 3. Pain well-controlled continue current regimen. 4. Medical management as per the primary medicine service. 5. Dressing may be taken off on POD#3; [place] to remain in place, cover w/ new dressing if there is drainage. 6. Disposition - pending further PT/OT 7. Follow-up outpatient with Dr. Bryant's team 10-12 days postop. Admission and Anticipated Discharge Date Admission Date: February 18, 2024 Subjective POD#1 s/p closed reduction internal fixation of right subtrochanteric femur fracture with long IM nail, cannulated femoral head/neck compression screw, and distal locking screw. She denies chest pain, shortness of breath, and abnormal surgical extremity paresthesia. She seems very down today because she has been told by therapy that she will not be able to return home in her current status. She says she does not understand why she has to pay to go somewhere when she already has a home. Her pain is relatively well-controlled, as she has been transitioning to oral pain medications and Tylenol. Review of Systems Review of Systems: All systems reviewed & are unremarkable except as noted in HPI & below Physical Exam Physical Exam: GENERAL: AA&Ox3, NAD. Pleasant, affect is calm. Sitting in bedside chair and appears comfortable. RESPIRATORY: Normal respiratory effort with no signs of distress. CHEST/AXILLA: Chest movement symmetrical. No deformities noted. CARDIOVASCULAR: No edema noted. SKIN: [place], warm and dry. MS/EXTREMITY: Hip/thigh dressings c/d/i, no excess saturation. Thigh w/ expected edema. + ankle dorsi/plantarflexion. + wiggles toes. Neurologically intact. Calf NT. PT/DP intact. Results & Data Vital Signs (Past 12 Hours) Vital Signs Temp Pulse Pulse Pulse Resp BP Pulse Ox 02/20/24 07:56 36.9 C 71 18 121/66 93 02/20/24 07:52 72 02/20/24 05:27 36.8 C 84 20 136/62 96 02/20/24 01:15 36.8 C 82 18 142/64 H 97 02/20/24 00:33 71 O2 Del Method O2 Flow Rate 02/20/24 07:56 Room Air 02/20/24 07:52 02/20/24 05:27 Nasal Cannula 2 02/20/24 01:15 Nasal Cannula 2 02/20/24 00:33 Laboratory Results Laboratory Results - last 24 hr 02/19/24 02/20/24 11:11 06:29 WBC 10.18 RBC 3.98 L Hgb 13.2 Hct 37.5 MCV 94.2 MCH 33.2 MCHC 35.2 RDW Std Deviation 40.4 RDW Coeff of Angela 11.7 Plt Count 180 MPV 10.4 Immature Gran % (Auto) 0.3 Neut % (Auto) 67.3 Lymph % (Auto) 19.5 [place] % (Auto) 11.4 Eos % (Auto) 1.0 Baso % (Auto) 0.5 Neut # (Auto) 6.85 H Lymph # (Auto) 1.99 [place] # (Auto) 1.16 H Eos # (Auto) 0.10 Baso # (Auto) 0.05 Immature Gran # (Auto) 0.03 Sodium 139 Potassium 3.5 Chloride 104 Carbon Dioxide 29 Anion Gap 6 BUN 10 Creatinine 0.49 L Est Cr Clr Drug Dosing 78.3 Est GFR ( Amer) 103.7 Est GFR (Non-Af Amer) 89.5 BUN/Creatinine Ratio 20.4 H Glucose 102 H Calcium 8.1 L 25-OH Vitamin D Total 94.6 Blood Type A Positive Antibody Screen NEGATIVE (1) Femur fracture, right Encounter type: initial encounter Femur location: unspecified portion of femur Fracture morphology: unspecified fracture morphology Fracture type: artie sed Qualified Code(s): S72.91XA - Unspecified fracture of right femur, initial encounter for closed fracture
--- NOTE | 2024-02-20 14:20 | Hospitalist Progress Note ---
Date of Service February 20, 2024 Assessment & Plan (1) Femur fracture, right: Plan: Pt is an 83yoF with PMHx significant for hypertension, anxiety, hypothyroidism, hyperlipidemia who presented with a mechanical fall 1 hour prior to presentation, found to have a right femur fracture. R femur fracture Patient reports that her knee buckled and she fell down. CBC was unremarkable. CMP revealed mild elevation of bilirubin to 1.9. Pelvic x-ray showed acute mildly displaced, significantly angulated intertrochanteric/subtrochanteric fracture of right femur. Chest x-rayno acute cardiopulmonary finding Orthopedics consulted, appreciate recs -s/p closed reduction and internal fixation on 02/19 -Currently POD #1 -Orthopedics recommended the following post-op: -DVT prophylaxis w/ ASA 81 mg BID. -Con't PT/OT as tolerated. WBAT on RLE. -Pain well-controlled continue current regimen. -Medical management as per the primary medicine service. -Dressing may be taken off on POD#3; Wilfredo to remain in place, cover w/ new dressing if there is drainage. -Disposition - pending further PT/OT -Follow-up outpatient with Dr. Bryant's team 10-12 days postop. Continue pain control with Tylenol, oxycodone and morphine PT OT recommending rehab, pt hesitant and tearful about going Chronic conditions; Hypertensioncontinue amlodipine, metoprolol Hypothyroidismcontinue levothyroxine Hyperlipidemia continue rosuvastatin Anxiety disordercontinue home meds Diet: HH/soft and moist DVT prophylaxis: aspirin 81mg BID per ortho Dispo: PT recommending rehab Admission and Anticipated Discharge Date Admission Date: February 18, 2024 Subjective Pt seen with boyfriend at bedside. Denied acute concerns. States that she does not want to go to rehab. Review of Systems Review of Systems: All systems reviewed & are unremarkable except as noted in Subjective Physical Exam Physical Exam: General: Alert, oriented. No acute distress, sitting in chair Psych: Appropriate mood and affect Neuro: unable to move without difficulty post op HEENT: NC/AT CV: RRR Resp: Breath sounds clear bilaterally, no increased effort of breathing. Abdomen: Soft, nontender, nondistended. Extremities: swelling in right lower extremity Results & Data Results & Data Vital Signs (Past 12 Hours) Vital Signs Temp Pulse Pulse Pulse Resp BP Pulse Ox 02/20/24 11:58 36.8 C 69 18 139/74 91 02/20/24 07:56 36.9 C 71 18 121/66 93 02/20/24 07:52 72 02/20/24 05:27 36.8 C 84 20 136/62 96 O2 Del Method O2 Flow Rate 02/20/24 11:58 Room Air 02/20/24 07:56 Room Air 02/20/24 07:52 02/20/24 05:27 Nasal Cannula 2 Diagnostic Findings Chest X-Ray 02/18/24 15:56 SUPINE AP CHEST RADIOGRAPH CLINICAL HISTORY: Preoperative evaluation. COMPARISON STUDY: Chest radiograph May 14, 2014. FINDINGS: Lung volumes are normal. Lungs are clear. There is no pneumothorax or pleural effusion on supine exam. Cardiac size is normal. Mediastinal contours are normal. There is no evidence for pulmonary edema. IMPRESSION: No acute cardiopulmonary findings. ACT 112: Negative or not required by law. Electronically signed by: Brock Bar M.D. 02/18/2024 4:27 PM Femur X-Ray 02/18/24 15:57 XR femur RT 2V routine CLINICAL HISTORY: fall COMPARISON: Right knee radiographs July 27, 2014. FINDINGS: There is an acute moderately displaced, significantly angulated intertrochanteric/subtrochanteric fracture of the right femur. Associated soft tissue swelling is present. There is no distal right femoral fracture. Right knee arthroplasty is intact. No proximal right tibial or fibular fracture is present. IMPRESSION: 1. Acute displaced angulated intertrochanteric/subtrochanteric fracture of the right femur. 2. No distal right femoral fracture. Intact total right knee arthroplasty. ACT 112: Negative or not required by law. Electronically signed by: Brock Bar M.D. 02/18/2024 4:34 PM Pelvis X-Ray 02/18/24 15:57 XR pelvis 1-2V routine CLINICAL HISTORY: fall COMPARISON: None FINDINGS: Sacroiliac joints and symphysis pubis are intact. There are no acute fractures within the pelvis or left hip. There is an acute moderately displaced, significantly angulated intertrochanteric/subtrochanteric fracture of the right femur. IMPRESSION: Acute moderately displaced, significantly angulated intertrochanteric/subtrochanteric fracture of the right femur. ACT 112: Negative or not required by law. Electronically signed by: Brock Bar M.D. 02/18/2024 4:33 PM Femur X-Ray 02/19/24 09:00 FL femur RT 2V CLINICAL HISTORY: Right trochnail TECHNIQUE: 8 views were obtained with the C-arm in the OR with the above procedure. Total fluoroscopy time was 140.1 seconds. Radiation dose was 19.27 mGy. Comparison: Comparison is made to right femur radiograph 02/18/2024 FINDINGS/IMPRESSION: Intraoperative images were obtained of right trochanteric nail placement. Please correlate with intraoperative fluoroscopy and operative report. ACT 112: Negative or not required by law. Electronically signed by: Yoni Fajardo M.D. 02/19/2024 8:03 PM Femur X-Ray 02/19/24 18:11 XR femur RT 2V routine CLINICAL HISTORY: s/p right femur internal fixation TECHNIQUE: 2 radiographic views of the right femur were obtained. Comparison: Comparison is made to right femur radiograph 02/18/2024 FINDINGS: Postsurgical changes of right femur internal fixation. Fracture fragments are in near-anatomic alignment. A total knee arthroplasty is seen. IMPRESSION: Postsurgical appearance status post internal fixation of femoral fracture. ACT 112: Negative or not required by law. Electronically signed by: Yoni Fajardo M.D. 02/19/2024 7:18 PM (1) Femur fracture, right Encounter type: initial encounter Femur location: unspecified portion of femur Fracture morphology: unspecified fracture morphology Fracture type: closed Qualified Code(s): S72.91XA - Unspecified fracture of right femur, initial encounter for closed fracture
[2024-02-20] MEDS: ASPIRIN 81 MG ECTAB PO SCH (20:44)
[2024-02-21 06:58] LABS: Hematocrit (blood only) 34.7 % (37.0-47.0); Hemoglobin 12.1 g/dl (12.0-16.0); Mean Corpuscular Hemoglobin 32.4 pg (25.0-34.0); Mean Corpuscular Hgb Conc 34.9 g/dL (32.0-36.0); Mean Platelet Volume 10.4 fL (9.4-12.4); Platelet Count 142 K/uL (130-400); RDW Coefficient of Variation 11.7 % (11.5-14.5); RDW Standard Deviation 39.6 fL (36.4-46.3); Red Blood Count 3.73 M/uL (4.20-5.40); White Blood Count 10.16 K/ul (4.8-10.8)
[2024-02-21 07:04] LABS: BUN Creatinine Ratio 23.9 (10-20); Calcium 8.2 mg/dl (8.6-10.3); Creatinine Clr Calc Pharmacy 83.4 ml/min; Est GFR (African American) 105.9 ml/min; Est GFR (Non-African American) 91.3 ml/min; Potassium 3.6 mmol/L (3.5-5.1)
--- NOTE | 2024-02-21 14:51 | Hospitalist Progress Note ---
Date of Service February 21, 2024 Assessment & Plan (1) Femur fracture, right: Plan: Pt is an 83yoF with PMHx significant for hypertension, anxiety, hypothyroidism, hyperlipidemia who presented with a mechanical fall 1 hour prior to presentation, found to have a right femur fracture. R femur fracture Patient reports that her knee buckled and she fell down. CBC was unremarkable. CMP revealed mild elevation of bilirubin to 1.9. Pelvic x-ray showed acute mildly displaced, significantly angulated intertrochanteric/subtrochanteric fracture of right femur. Chest x-rayno acute cardiopulmonary finding Orthopedics consulted, appreciate recs -s/p closed reduction and internal fixation on 02/19 -Currently POD #2 -Orthopedics recommended the following post-op: -DVT prophylaxis w/ ASA 81 mg BID. -Con't PT/OT as tolerated. WBAT on RLE. -Pain well-controlled continue current regimen. -Medical management as per the primary medicine service. -Dressing may be taken off on POD#3; Wilfredo to remain in place, cover w/ new dressing if there is drainage. -Disposition - pending further PT/OT -Follow-up outpatient with Dr. Bryant's team 10-12 days postop. Continue pain control with Tylenol, oxycodone and morphine PT OT recommending rehab, pt hesitant and tearful about going Chronic conditions; Hypertensioncontinue amlodipine, metoprolol Hypothyroidismcontinue levothyroxine Hyperlipidemia continue rosuvastatin Anxiety disordercontinue home meds Diet: HH/soft and moist DVT prophylaxis: aspirin 81mg BID per ortho Dispo: PT recommending rehab, pt declining Admission and Anticipated Discharge Date Admission Date: February 18, 2024 Subjective Pt seen sitting at bedside. Denied acute concerns. States that she does not want to go to rehab. Review of Systems Review of Systems: All systems reviewed & are unremarkable except as noted in Subjective Physical Exam 2 Physical Exam: General: Alert, oriented. No acute distress, sitting in chair Psych: Appropriate mood and affect Neuro: unable to move without difficulty post op HEENT: NC/AT CV: RRR Resp: Breath sounds clear bilaterally, no increased effort of breathing. Abdomen: Soft, nontender, nondistended. Extremities: swelling in right lower extremity Results & Data Results & Data Vital Signs (Past 12 Hours) Vital Signs Temp Pulse Pulse Pulse Resp BP Pulse Ox 02/21/24 14:50 77 02/21/24 11:46 37.0 C 67 17 105/51 L 95 02/21/24 08:19 36.6 C 76 16 122/61 93 02/21/24 07:40 64 02/21/24 07:20 02/21/24 06:13 36.8 C 02/21/24 03:00 38.0 C H 76 17 145/72 H 93 O2 Del Method 02/21/24 14:50 02/21/24 11:46 Room Air 02/21/24 08:19 Room Air 02/21/24 07:40 02/21/24 07:20 Room Air 02/21/24 06:13 02/21/24 03:00 Room Air (1) Femur fracture, right Encounter type: initial encounter Femur location: unspecified portion of femur Fracture morphology: unspecified fracture morphology Fracture type: closed Qualified Code(s): S72.91XA - Unspecified fracture of right femur, initial encounter for closed fracture
[2024-02-22 07:34] LABS: Calcium 8.2 mg/dl (8.6-10.3); Magnesium 2.1 mg/dl (1.7-2.4); Potassium 3.5 mmol/L (3.5-5.1)
[2024-02-22 07:39] LABS: BUN Creatinine Ratio 27.5 (10-20); Creatinine Clr Calc Pharmacy 96.9 ml/min; Est GFR (African American) 110.9 ml/min; Est GFR (Non-African American) 95.6 ml/min; Phosphorus 2.7 mg/dl (2.5-4.9)
[2024-02-22 08:28] LABS: Hematocrit (blood only) 36.9 % (37.0-47.0); Hemoglobin 13.2 g/dl (12.0-16.0); Mean Corpuscular Hemoglobin 33.2 pg (25.0-34.0); Mean Corpuscular Hgb Conc 35.8 g/dL (32.0-36.0); Mean Corpuscular Volume 92.7 fL (80.0-100.0); Mean Platelet Volume 11.7 fL (9.4-12.4); Platelet Count 61 K/uL (130-400); Platelet Estimate Decreased (Normal); RDW Coefficient of Variation 11.9 % (11.5-14.5); RDW Standard Deviation 40.3 fL (36.4-46.3); Red Blood Count 3.98 M/uL (4.20-5.40)
--- NOTE | 2024-02-22 14:50 | Electrocardiogram Report ---
Test Reason : Blood Pressure : / mmHG Vent. Rate : 073 BPM Atrial Rate : 174 BPM P-R Int : 000 ms QRS Dur : 074 ms QT Int : 384 ms P-R-T Axes : 000 016 032 degrees QTc Int : 423 ms Undetermined rhythm Diffuse Minor Nonspecific ST abnormality Abnormal ECG When compared with ECG of 18-FEB-2024 16:03, Premature ventricular complexes no longer present Confirmed by Emiliano Beverly ([id number]) on 02/22/2024 2:50:04 PM Referred By: Jose Luis Gorman Confirmed By:Emiliano Beverly
--- NOTE | 2024-02-22 15:12 | Hospitalist Progress Note ---
Date of Service February 22, 2024 Assessment & Plan (1) Femur fracture, right: Plan: Pt is an 83yoF with PMHx significant for hypertension, anxiety, hypothyroidism, hyperlipidemia who presented with a mechanical fall 1 hour prior to presentation, found to have a right femur fracture. R femur fracture Patient reports that her knee buckled and she fell down. CBC was unremarkable. CMP revealed mild elevation of bilirubin to 1.9. Pelvic x-ray showed acute mildly displaced, significantly angulated intertrochanteric/subtrochanteric fracture of right femur. Chest x-rayno acute cardiopulmonary finding Orthopedics consulted, appreciate recs -s/p closed reduction and internal fixation on 02/19 -Currently POD #3 -Orthopedics recommended the following post-op: -DVT prophylaxis w/ ASA 81 mg BID. -Con't PT/OT as tolerated. WBAT on RLE. -Pain well-controlled continue current regimen. -Medical management as per the primary medicine service. -Dressing may be taken off on POD#3; Wilfredo to remain in place, cover w/ new dressing if there is drainage. -Follow-up outpatient with Dr. Bryant's team 10-12 days postop. Continue pain control with Tylenol, oxycodone and morphine PT OT recommending rehab, pt currently agreeable to going New onset atrial fibrillation Pt converted to a fib on 02/21 EKG obtained Echo ordered and pending Cardiology consulted, appreciate recs -continue metoprolol 25mg BID -start Eliquis 5mg BID -hold aspirin while on Eliquis Continue to monitor on telemetry Chronic conditions; Hypertensioncontinue amlodipine, metoprolol Hypothyroidismcontinue levothyroxine Hyperlipidemia continue rosuvastatin Anxiety disordercontinue home meds Diet: HH/soft and moist DVT prophylaxis: aspirin 81mg BID per ortho Dispo: PT recommending rehab, pt declining Admission and Anticipated Discharge Date Admission Date: February 18, 2024 Subjective pt sitting in chair at bedside. Boyfriend at bedside, agreeable to rehab for a week. Denied acute concerns at that time. Later notified that pt had converted to a fib. Review of Systems Review of Systems: All systems reviewed & are unremarkable except as noted in Subjective Physical Exam Physical Exam: General: Alert, oriented. No acute distress, sitting in chair Psych: Appropriate mood and affect Neuro: unable to move without difficulty post op HEENT: NC/AT CV: Irregular rate and rhythm Resp: Breath sounds clear bilaterally, no increased effort of breathing. Abdomen: Soft, nontender, nondistended. Extremities: swelling in right lower extremity Results & Data Results & Data Vital Signs (Past 12 Hours) Vital Signs Temp Pulse Pulse Pulse Resp BP BP 02/22/24 11:02 36.6 C 78 18 112/71 02/22/24 08:06 37.2 C 79 16 114/56 L 02/22/24 05:55 78 02/22/24 04:00 36.5 C 75 18 112/64 Pulse Ox O2 Del Method 02/22/24 11:02 94 Room Air 02/22/24 08:06 93 Room Air 02/22/24 05:55 02/22/24 04:00 93 Room Air (1) Femur fracture, right Encounter type: initial encounter Femur location: unspecified portion of femur Fracture morphology: unspecified fracture morphology Fracture type: closed Qualified Code(s): S72.91XA - Unspecified fracture of right femur, init ial encounter for closed fracture
--- NOTE | 2024-02-22 16:39 | Cardiology Consultation ---
Date of Consultation February 22, 2024 Assessment & Plan (1) Atrial fibrillation with controlled ventricular rate: (2) Femur fracture, right: (3) HTN (hypertension): Plan Patient with new onset atrial fibrillation with controlled rates Pathophysiology and treatment options discussed with the patient. She is currently asymptomatic. Continue home dose metoprolol 25 mg BID for ongoing rate control [id number] score of 4 (female, age, HTN) therefore recommend initiation of anticoagulation with Eliquis 5 mg BID. Check electrolytes and keep potassium between 4.0-5.0 and magnesium > 2.0 Recommend echocardiogram She takes ASA 81 mg daily as outpatient. This can be discontinued when starting Eliquis. Continue home oral antihypertensives. Continue statin Case discussed with Dr. Pierce I spent a total of 45 minutes on the date of service in preparation, delivery, and documentation of the care provided to this patient, excluding any time spent in the performance of separately billed services. Kayla Gallegos PA-C Department of Cardiology, [facility] This chart was completed in part utilizing Speech Voice Recognition Software. Grammatical errors, random word insertions, pronoun errors, and incomplete sentences are an occasional consequence of this system due to software limitations, ambient noise, and hardware issues. Any formal questions or concerns about the content, text, or information contained within the body of this dictation should be directly addressed to the provider for clarification. Supervising Physician Co-Signing Physician Notes Agree with assessment and plan as per advanced provider as above. Chart and telemetry reviewed. 83-year-old female who underwent repair of hip fracture following mechanical fall. Incidentally noted to be in atrial fibrillation on EKG and telemetry postop with controlled ventricular response rate Patient asymptomatic Heart rate controlled with usual antihypertensive regimen with metoprolol Patient's [id number] 2 score of 4 Recommendations as above will check echocardiogram and anticoagulate with Eliquis, continue metoprolol Contact with any questions I spent a total of 15 minutes on the date of service in preparation, delivery, and documentation of the care provided to this patient, excluding any time spent in the performance of separately billed services. History of Present Illness Reason for Consultation: Atrial fibrillation with controlled rates, new onset Requesting Physician: Dr. Victoria Attending Physician: Dr. Pierce History of Present Illness Patient is an 83-year-old female admitted after a fall sustaining a right femur fracture. Fall was mechanical. Underwent surgical repair on 02/20/2024 which she tolerated. Earlier this afternoon around 2:23 PM, patient developed atrial fibrillation with a controlled ventricular response. Patient denies cardiac history. No history of CAD, RI, CHF, arrhythmia or valvular heart disease. She has never had a cardiology evaluation or cardiology testing. History includes: Hypertension Dyslipidemia Hypothyroidism Anxiety No prior history of diabetes, TIA, CVA, or prior bleeding complications. At time of evaluation, patient resting in bed comfortably. She denies palpitations or tachypalpitations. No dizziness, lightheadedness, syncope or near syncope. No recent chest pain or unusual shortness of breath. Postop pain well-controlled today. Allergies Allergy/AdvReac Type Severity Reaction Status Date / Time celecoxib Allergy Unknown hives Verified 02/19/24 13:54 penicillin G Allergy Unknown HIVES Verified 02/19/24 13:54 Sulfa (Sulfonamide Allergy Unknown HIVES Verified 02/19/24 13:54 Antibiotics) aspirin AdvReac Unknown ACID REFLUX Verified 02/19/24 13:54 blue dye AdvReac Unknown nausea and Verified 02/19/24 13:54 vomiting duloxetine AdvReac Unknown nausea and Verified 02/19/24 13:54 vomiting NSAIDS (Non-Steroidal AdvReac Unknown ACID REFLUX Verified 02/19/24 13:54 Anti-Inflamma Home Medications Medication Instructions Recorded Confirmed Type alprazolam 0.25 mg tablet 0.25 mg PO TID PRN Anxiety 02/18/24 02/18/24 History amlodipine 2.5 mg tablet 2.5 mg PO QPM 02/18/24 02/18/24 History amlodipine 2.5 mg tablet 5 mg PO QAM 02/18/24 02/18/24 History aspirin 81 mg tablet,delayed 81 mg PO DAILY 02/18/24 02/18/24 History release benzonatate 200 mg capsule 200 mg PO TID 02/18/24 02/18/24 History buspirone 7.5 mg tablet 7.5 mg PO BID 02/18/24 02/18/24 History esomeprazole magnesium 40 mg 40 mg PO DAILY 02/18/24 02/18/24 History capsule,delayed release ibandronate 150 mg tablet 150 mg PO MO 02/18/24 02/18/24 History levothyroxine 50 mcg tablet 50 mcg PO DAILY 02/18/24 02/18/24 History metoprolol tartrate 25 mg tablet 25 mg PO BID 02/18/24 02/18/24 History rosuvastatin 5 mg tablet 5 mg PO [id number] 02/18/24 02/18/24 History Patient History Medical History HLD (hyperlipidemia) HTN (hypertension) GERD (gastroesophageal reflux disease) Surgical History No pertinent past surgical history Social History Smoking Status: Never smoker Hx Alcohol Use: No Hx Substance Use: No Preferred Language: Turkish Communication Ability: Effective Front Desk Clerk Required: No Beliefs That Will Affect Care: None Current Living Situation: Spouse Other Information That Helps Us Care for You: No Feels Safe at Home: Yes Safety Concerns: Feels Safe At This Time Assistive Devices: Glasses and Hearing Aid - Bilateral Review of Systems Review of Systems: All systems reviewed & are unremarkable except as noted in HPI & below Physical Exam Constitutional: WD/WN, vitals as above well developed; no acute distress Neck: trachea midline, no thyromegaly Respiratory: normal respiratory effort Auscultation: lungs clear to auscultation bilaterally Cardiovascular: Rate/Rhythm: + irregularly irregular Heart Sounds: no murmur Palpation: normal PMI Vessels: no JVD Extremities: no edema Gastrointestinal (Abdomen): normal bowel sounds, soft, nontender, no hepatosplenomegaly Musculoskeletal: no cyanosis or clubbing, extremities motor strength 5/5 Skin: no rashes, warm and dry Neurologic: PERRL, EOMI, accommodation nl, no face palsy, no dysarthria Results & Data Vital Signs (Past 12 Hours) Vital Signs Temp Pulse Pulse Resp BP BP Pulse Ox 02/22/24 15:27 36.9 C 80 17 121/62 96 02/22/24 14:26 81 02/22/24 11:02 36.6 C 78 18 112/71 94 02/22/24 08:06 37.2 C 79 16 114/56 L 93 02/22/24 05:55 78 O2 Del Method 02/22/24 15:27 Room Air 02/22/24 14:26 02/22/24 11:02 Room Air 02/22/24 08:06 Room Air 02/22/24 05:55 Laboratory Results CBC 02/22/24 Range/Units 06:34 WBC 10.70 (4.8-10.8) K/ul RBC 3.98 L (4.20-5.40) M/uL Hgb 13.2 (12.0-16.0) g/dl Hct 36.9 L (37.0-47.0) % Plt Count 61 L D (130-400) K/uL Comprehensive Metabolic Panel 02/22/24 Range/Units 06:34 Sodium 138 (136-145) mmol/L Potassium 3.5 (3.5-5.1) mmol/L Chloride 104 (98-107) mmol/L Carbon Dioxide 26 (21-32) mmol/L BUN 11 (6-23) mg/dl Creatinine 0.40 L (0.6-1.2) mg/dl Glucose 102 H (70-99(Fasting)) mg/dl Calcium 8.2 L (8.6-10.3) mg/dl Intake and Output 02/22/24 02/22/24 02/22/24 06:59 14:59 22:59 Intake Total 250 / 1940 600 / 600 Output Total 900 / 2475 Balance -650 / -535 599 / 599 Intake: Oral 250 / 1940 600 / 600 Output: Urine Amount (Catheter) 900 / 2475 Sepulveda/Indwelling 900 / 2475 # Bowel Movements Other: # Unmeasured Voids 2 Weight 68 kg Weight Measurement Method Built in [facility] Diagnostic Findings Telemetry reviewed: Around 2:30 PM this afternoon patient converted from Normal sinus rhythm to atrial fibrillation with controlled rates. Currently HR around 70-80 bmp EKG reviewed from today: Atrial fibrillation with controlled rate non specific ST abnormality EKG reviewed from admission: NSR wtih occ PVC No acute ischemic changes Medications Administered Current Inpatient Medications Acetaminophen (Acetaminophen 325 Mg Tab) 650 mg PO Q4H PRN PRN Reason: Pain or Fever Stop: 03/19/24 17:49 Last Admin: 02/21/24 03:12 Dose: 650 mg Alprazolam (Alprazolam 0.25 Mg Tablet) 0.25 mg PO TID PRN PRN Reason: Anxiety Stop: 03/19/24 17:53 Last Admin: 02/19/24 20:14 Dose: 0.25 mg Amlodipine Besylate (Amlodipine Besylate 5 Mg Tab) 2.5 mg PO QPM [facility] Stop: 03/19/24 20:59 Last Admin: 02/21/24 21:36 Dose: 2.5 mg Amlodipine Besylate (Amlodipine Besylate 5 Mg Tab) 5 mg PO QAM [facility] Stop: 03/20/24 08:59 Last Admin: 02/22/24 09:17 Dose: 5 mg Aspirin (Aspirin 81 Mg Ectab) 81 mg PO BID JANIE Stop: 03/20/24 20:59 Last Admin: 02/22/24 09:16 Dose: 81 mg Benzonatate (Benzonatate 100 Mg Capsule) 200 mg PO TID [facility] Stop: 03/20/24 20:59 Last Admin: 02/22/24 14:09 Dose: 200 mg Buspirone HCl (Buspirone 7.5 Mg Tab) 7.5 mg PO BID [facility] Stop: 03/19/24 20:59 Last Admin: 02/22/24 09:16 Dose: 7.5 mg Lactated Ringer's (Lr) 1,000 mls @ 15 mls/hr IV .Q24H [facility] Stop: 03/20/24 13:44 Last Admin: 02/22/24 13:29 Dose: Not Given Levothyroxine Sodium (Levothyroxine Sodium 25 Mcg Tablet) 25 mcg PO DAILYBB [facility] Stop: 03/20/24 06:29 Last Admin: 02/22/24 06:07 Dose: 25 mcg Metoprolol Tartrate (Metoprolol Tartrate 25 Mg Tab) 25 mg PO BID [facility] Stop: 03/19/24 20:59 Last Admin: 02/22/24 09:17 Dose: 25 mg Miscellaneous (Ibandronate*Order Awaiting Action) 1 each N/A QS [facility] Stop: 04/02/24 00:00 Morphine Sulfate (Morphine Sulfate 2 Mg/Ml Carp) 2 mg IV Q4H PRN PRN Reason: Severe Pain (Scale 7, 8, 9,10) Stop: 03/03/24 17:49 Last Admin: 02/20/24 00:22 Dose: 2 mg Ondansetron HCl (Ondansetron Inj 2 Mg/Ml 2 Ml Vial) 4 mg IV Q6H PRN PRN Reason: Nausea And Vomiting Stop: 03/19/24 23:50 Last Admin: 02/22/24 08:50 Dose: 4 mg Oxycodone HCl (Oxycodone Hcl Ir 5 Mg Tab (Immediate Release)) 5 mg PO Q6H PRN PRN Reason: Moderate Pain (Scale 4, 5, 6) Stop: 03/03/24 17:49 Last Admin: 02/20/24 05:42 Dose: 5 mg Pantoprazole Sodium (Pantoprazole 40 Mg Tab) 40 mg PO DAILY [facility] Stop: 03/20/24 08:59 Last Admin: 02/22/24 09:17 Dose: 40 mg Polyethylene Glycol (Polyethylene (Miralax) 17 Gm Pack) 17 gm PO DAILY PRN PRN Reason: Constipation Stop: 03/19/24 17:49 Last Admin: 02/21/24 21:49 Dose: 17 gm Rosuvastatin Calcium (Rosuvastatin Calcium 5 Mg Tab) 5 mg PO [id number] [facility] Stop: 03/21/24 08:59 Last Admin: 02/22/24 09:17 Dose: 5 mg (2) Femur fracture, right Encounter type: initial encounter Femur location: unspecified portion of femur Fracture morphology: unspecified fracture morphology Fracture type: closed Qualified Code(s): S72.91XA - Unspecified fracture of right femur, initial encounter for closed fracture
--- NOTE | 2024-02-22 19:32 | Orthopedic Progress Note ---
Date of Service February 22, 2024 Assessment & Plan (1) Recent surgical procedure on lower extremity: (2) Femur fracture, right: - change dressing PRN. wounds may get wet at this time. [place] to remain in until first post op check. - Aspirin for DVT prophylaxis - may be WBAT and ROMAT - Follow-up in 2 weeks as an outpatient. Subjective Operation Date: 02/19/24 12:15 Actual Procedures p Right Femur Fracture Closed Reduction and Internal Fixation with a Cephalomedullary Trochanteric Fixation Nail(Right) - Cain Bryant MD POD 3. patient resting in hospital chair. She is anxious to be discharged. She has worked with PT and OT. States that her pain is under control. No other question or concerns today. Review of Systems All systems reviewed & are unremarkable except as noted in HPI & below. Physical Exam Patient resting comfortably. She has good ROM of her right knee. Her right hip does have decrease ROM secondary to pain. This is expected. She does have new dressings on her wounds that are not saturated. Sensation intact. Distal pulses palpated. No edema in the lower leg noted. Results & Data Results & Data Laboratory Results . Diagnostic Findings . PG Care Time/CCT Total # of Minutes Spent Total Time Spent with Patient: Total time spent is greater than 50% in coordination of care (as documented) at patient's floor/unit and/or counseling patient: Coding Level of Care Code 80806 Post Operative Follow-Up Diagnoses Recent surgical procedure on lower extremity Z98.890 Femur fracture, right S72.91XA Encounter type: initial encounter Femur location: unspecified portion of femur Fracture morphology: unspecified fracture morphology Fracture type: closed (2) Femur fracture, right Encounter type: initial encounter Femur location: unspecified portion of femur Fracture morphology: unspecified fracture morphology Fracture type: closed Qualified Code(s): S72.91XA - Unspecified fracture of right femur, initial encounter for closed fracture
[2024-02-22] MEDS: APIXABAN 5 MG TABLET PO SCH (20:38)
[2024-02-23 06:42] LABS: Hematocrit (blood only) 36.7 % (37.0-47.0); Hemoglobin 12.7 g/dl (12.0-16.0); Mean Corpuscular Hemoglobin 32.6 pg (25.0-34.0); Mean Corpuscular Hgb Conc 34.6 g/dL (32.0-36.0); Mean Corpuscular Volume 94.1 fL (80.0-100.0); Mean Platelet Volume 10.6 fL (9.4-12.4); Platelet Count 225 K/uL (130-400); RDW Coefficient of Variation 11.9 % (11.5-14.5); RDW Standard Deviation 40.7 fL (36.4-46.3); White Blood Count 9.79 K/ul (4.8-10.8)
--- NOTE | 2024-02-23 07:40 | Orthopedic Progress Note ---
Date of Service February 23, 2024 Assessment & Plan (1) Recent surgical procedure on lower extremity: (2) Femur fracture, right: Making progress as expected. Remains inpatient due to rehabilitation needs. - change dressing PRN. wounds may get wet at this time. [place] to remain in until first post op check. - Aspirin for DVT prophylaxis - may be WBAT and ROMAT - Follow-up in 2-3 weeks as an outpatient for wound check and x-rays. Subjective [place] that she wants to go home but will do [facility]. Does not want to go to nursing homes. Desires return to previous lifestyle soon as possible. Pain occurs only with walking and she thinks it is getting better. No issues with appetite. Feels well otherwise Review of Systems All systems reviewed & are unremarkable except as noted in HPI & below. Physical Exam RLE: Wounds are well-approximated, clean and dry. Clean dressings were applied and peeled back for inspection. Distal neurovascular intact. Can squeeze her quad. Positive DF/PF/EHL Constitutional WD/WN, vitals as above no acute distress and not intoxicated appearing Respiratory normal respiratory effort; no labored breathing Cardiovascular Extremities: normal capillary refill Results & Data Results & Data Laboratory Results . Diagnostic Findings . PG Care Time/CCT Total # of Minutes Spent Total Time Spent with Patient: Total time spent is greater than 50% in coordination of care (as documented) at patient's floor/unit and/or counseling patient: Coding Level of Care Code 39822 Post Operative Follow-Up Diagnoses Recent surgical procedure on lower extremity Z98.890 Femur fracture, right S72.91XA Encounter type: initial encounter Femur location: unspecified portion of femur Fracture morphology: unspecified fracture morphology Fracture type: closed (2) Femur fracture, right Encounter type: initial encounter Femur location: unspecified portion of femur Fracture morphology: unspecified fracture morphology Fracture type: closed Qualified Code(s): S72.91XA - Unspecified fracture of right femur, initial encounter for closed fracture
[2024-02-23 08:16] LABS: Est GFR (African American) 101.1 ml/min; Phosphorus 3.8 mg/dl (2.5-4.9); Potassium 3.6 mmol/L (3.5-5.1)
[2024-02-23 08:17] LABS: BUN Creatinine Ratio 35.8 (10-20); Calcium 8.4 mg/dl (8.6-10.3); Creatinine Clr Calc Pharmacy 73.1 ml/min; Est GFR (Non-African American) 87.2 ml/min; Magnesium 2.1 mg/dl (1.7-2.4)
--- NOTE | 2024-02-23 09:06 | Communication Note ---
Date of Service: February 23, 2024 Telemetry reviewed. Patient converted to NSR with PACs 60-80s pm 02/22/2024 around 1630. Continue current dose of metoprolol succinate 25 mg BID Continue Eliquis 5 mg BID Okay to remain off ASA. No further recommendations from a cardiology standpoint. I have reviewed the advance practitioner's documentation, and I agree with, and take responsibility for the plan of care. Continue metoprolol and Eliquis as ordered. Cardiology will sign off. Please call with additional concerns/questions. Jayjay Arce DO, FACC
--- NOTE | 2024-02-23 13:50 | Hospitalist Progress Note ---
Date of Service February 23, 2024 Assessment & Plan (1) Femur fracture, right: Plan: Pt is an 83yoF with PMHx significant for hypertension, anxiety, hypothyroidism, hyperlipidemia who presented with a mechanical fall 1 hour prior to presentation, found to have a right femur fracture. R femur fracture Patient reports that her knee buckled and she fell down. CBC was unremarkable. CMP revealed mild elevation of bilirubin to 1.9. Pelvic x-ray showed acute mildly displaced, significantly angulated intertrochanteric/subtrochanteric fracture of right femur. Chest x-rayno acute cardiopulmonary finding Orthopedics consulted, appreciate recs -s/p closed reduction and internal fixation on 02/19 -Currently POD #3 -Orthopedics recommended the following post-op: -DVT prophylaxis w/ ASA 81 mg BID. -Con't PT/OT as tolerated. WBAT on RLE. -Pain well-controlled continue current regimen. -Medical management as per the primary medicine service. -Dressing may be taken off on POD#3; [place] to remain in place, cover w/ new dressing if there is drainage. -Follow-up outpatient with Dr. Bryant's team 10-12 days postop. Continue pain control with Tylenol, oxycodone and morphine PT OT recommending rehab, pt currently agreeable to going New onset atrial fibrillation Pt converted to a fib on 02/21 EKG obtained Echo noting EF 65-70%, mild tricuspid regurg Cardiology consulted, appreciate recs -continue metoprolol 25mg BID -start Eliquis 5mg BID -hold aspirin while on Eliquis Continue to monitor on telemetry Chronic conditions; Hypertensioncontinue amlodipine, metoprolol Hypothyroidismcontinue levothyroxine Hyperlipidemia continue rosuvastatin Anxiety disordercontinue home meds Diet: HH/soft and moist DVT prophylaxis: Eliquis 5mg BID, hold aspirin while on Eliquis Dispo: PT recommending rehab, pt declining Admission and Anticipated Discharge Date Admission Date: February 18, 2024 Subjective pt sitting in chair at bedside. States she is "as loose as a goose" referring to diarrhea Review of Systems Review of Systems: All systems reviewed & are unremarkable except as noted in Subjective Physical Exam Physical Exam: General: Alert, oriented. No acute distress, sitting in chair Psych: Appropriate mood and affect Neuro: unable to move without difficulty post op HEENT: NC/AT CV: Irregular rate and rhythm Resp: Breath sounds clear bilaterally, no increased effort of breathing. Abdomen: Soft, nontender, nondistended. Extremities: swelling in right lower extremity Results & Data Results & Data Vital Signs (Past 12 Hours) Vital Signs Temp Pulse Pulse Resp BP Pulse Ox O2 Del Method 02/23/24 11:28 36.8 C 69 16 113/72 97 Room Air 02/23/24 07:33 79 02/23/24 07:10 36.7 C 74 16 127/69 95 Room Air 02/23/24 02:19 36.6 C 66 16 108/57 L 95 Room Air (1) Femur fracture, right Encounter type: initial encounter Femur location: unspecified portion of femur Fracture morphology: unspecified fracture morphology Fracture type: closed Qualified Code(s): S72.91XA - Unspecified fracture of right femur, initial encounter for closed fracture
[2024-02-23] MEDS ORDERED: LOPERAMIDE HCL 2 MG CAP PO PRN (16:29)
[2024-02-24 06:40] LABS: Hematocrit (blood only) 36.4 % (37.0-47.0); Hemoglobin 12.6 g/dl (12.0-16.0); Mean Corpuscular Hemoglobin 33.1 pg (25.0-34.0); Mean Corpuscular Hgb Conc 34.6 g/dL (32.0-36.0); Mean Corpuscular Volume 95.5 fL (80.0-100.0); Platelet Count 252 K/uL (130-400); RDW Coefficient of Variation 12.1 % (11.5-14.5); RDW Standard Deviation 41.8 fL (36.4-46.3); Red Blood Count 3.81 M/uL (4.20-5.40); White Blood Count 7.61 K/ul (4.8-10.8)
[2024-02-24 07:51] LABS: BUN Creatinine Ratio 31.5 (10-20); Calcium 8.2 mg/dl (8.6-10.3); Creatinine Clr Calc Pharmacy 64.2 ml/min; Est GFR (African American) 100.4 ml/min; Est GFR (Non-African American) 86.7 ml/min; Phosphorus 2.8 mg/dl (2.5-4.9); Potassium 3.7 mmol/L (3.5-5.1)
--- NOTE | 2024-02-24 13:59 | Hospitalist Progress Note ---
Date of Service February 24, 2024 Assessment & Plan (1) Femur fracture, right: Plan: Pt is an 83yoF with PMHx significant for hypertension, anxiety, hypothyroidism, hyperlipidemia who presented with a mechanical fall 1 hour prior to presentation, found to have a right femur fracture. R femur fracture Patient reports that her knee buckled and she fell down. CBC was unremarkable. CMP revealed mild elevation of bilirubin to 1.9. Pelvic x-ray showed acute mildly displaced, significantly angulated intertrochanteric/subtrochanteric fracture of right femur. Chest x-rayno acute cardiopulmonary finding Orthopedics consulted, appreciate recs -s/p closed reduction and internal fixation on 02/18 -Currently POD #5 -Orthopedics recommended the following post-op: -DVT prophylaxis w/ ASA 81 mg BID. -Con't PT/OT as tolerated. WBAT on RLE. -Pain well-controlled continue current regimen. -Medical management as per the primary medicine service. -Dressing may be taken off on POD#3; [place] to remain in place, cover w/ new dressing if there is drainage. -Follow-up outpatient with Dr. Bryant's team 10-12 days postop. Continue pain control with Tylenol, oxycodone and morphine PT OT recommending rehab, pt currently agreeable to going New onset atrial fibrillation Pt converted to a fib on 02/21 EKG obtained Echo noting EF 65-70%, mild tricuspid regurg Cardiology consulted, appreciate recs -continue metoprolol 25mg BID -start Eliquis 5mg BID -hold aspirin while on Eliquis Continue to monitor on telemetry Chronic conditions; Hypertensioncontinue amlodipine, metoprolol Hypothyroidismcontinue levothyroxine Hyperlipidemia continue rosuvastatin Anxiety disordercontinue home meds Diet: HH/soft and moist DVT prophylaxis: Eliquis 5mg BID, hold aspirin while on Eliquis Dispo: PT recommending rehab, pt declining Admission and Anticipated Discharge Date Admission Date: February 18, 2024 Subjective Pt was seen with boyfriend at bedside. States diarhea resolved. Denied acute concerns Review of Systems Review of Systems: All systems reviewed & are unremarkable except as noted in Subjective Physical Exam Physical Exam: General: Alert, oriented. No acute distress, sitting in chair Psych: Appropriate mood and affect Neuro: unable to move without difficulty post op HEENT: NC/AT CV: Irregular rate and rhythm Resp: Breath sounds clear bilaterally, no increased effort of breathing. Abdomen: Soft, nontender, nondistended. Extremities: swelling in right lower extremity Results & Data Results & Data Vital Signs (Past 12 Hours) Vital Signs Temp Pulse Pulse Resp BP Pulse Ox O2 Del Method 02/24/24 12:10 36.7 C 82 18 131/61 95 Room Air 02/24/24 07:20 36.6 C 70 17 126/68 96 Room Air 02/24/24 07:13 80 02/24/24 03:04 36.7 C 64 18 115/56 L 94 Room Air (1) Femur fracture, right Encounter type: initial encounter Femur location: unspecified portion of femur Fracture morphology: unspecified fracture morphology Fracture type: closed Qualified Code(s): S72.91XA - Unspecified fracture of right femur, initial encounter for closed fracture
[2024-02-25 07:01] LABS: Hematocrit (blood only) 32.7 % (37.0-47.0); Hemoglobin 11.4 g/dl (12.0-16.0); Mean Corpuscular Hemoglobin 32.7 pg (25.0-34.0); Mean Corpuscular Hgb Conc 34.9 g/dL (32.0-36.0); Mean Corpuscular Volume 93.7 fL (80.0-100.0); Mean Platelet Volume 9.9 fL (9.4-12.4); Platelet Count 221 K/uL (130-400); RDW Coefficient of Variation 12.1 % (11.5-14.5); RDW Standard Deviation 41.2 fL (36.4-46.3); Red Blood Count 3.49 M/uL (4.20-5.40); White Blood Count 7.59 K/ul (4.8-10.8)
[2024-02-25 07:17] LABS: BUN Creatinine Ratio 31.1 (10-20); Calcium 7.9 mg/dl (8.6-10.3); Est GFR (African American) 106.6 ml/min; Phosphorus 2.7 mg/dl (2.5-4.9); Potassium 3.5 mmol/L (3.5-5.1)
--- NOTE | 2024-02-25 17:54 | Hospitalist Progress Note ---
Date of Service February 25, 2024 Assessment & Plan (1) Femur fracture, right: Plan: Pt is an 83yoF with PMHx significant for hypertension, anxiety, hypothyroidism, hyperlipidemia who presented with a mechanical fall 1 hour prior to presentation, found to have a right femur fracture. R femur fracture Patient reports that her knee buckled and she fell down. CBC was unremarkable. CMP revealed mild elevation of bilirubin to 1.9. Pelvic x-ray showed acute mildly displaced, significantly angulated intertrochanteric/subtrochanteric fracture of right femur. Chest x-rayno acute cardiopulmonary finding Orthopedics consulted, appreciate recs -s/p closed reduction and internal fixation on 02/18 -Currently POD #6 -Orthopedics recommended the following post-op: -DVT prophylaxis w/ ASA 81 mg BID. -Con't PT/OT as tolerated. WBAT on RLE. -Pain well-controlled continue current regimen. -Medical management as per the primary medicine service. -Dressing may be taken off on POD#3; [place] to remain in place, cover w/ new dressing if there is drainage. -Follow-up outpatient with Dr. Bryant's team 10-12 days postop. Continue pain control with Tylenol, oxycodone and morphine PT OT recommending rehab, pt currently agreeable to going Anticipate d/c in AM New onset atrial fibrillation Pt converted to a fib on 02/21 EKG obtained Echo noting EF 65-70%, mild tricuspid regurg Cardiology consulted, appreciate recs -continue metoprolol 25mg BID -start Eliquis 5mg BID -hold aspirin while on Eliquis Continue to monitor on telemetry Chronic conditions; Hypertensioncontinue amlodipine, metoprolol Hypothyroidismcontinue levothyroxine Hyperlipidemia continue rosuvastatin Anxiety disordercontinue home meds Diet: HH/soft and moist DVT prophylaxis: Eliquis 5mg BID, hold aspirin while on Eliquis Dispo: PT recommending rehab, pt declining Admission and Anticipated Discharge Date Admission Date: February 18, 2024 Subjective Pt was seen sitting in chair at bedside. Denied acute concerns. Review of Systems Review of Systems: All systems reviewed & are unremarkable except as noted in Subjective Physical Exam Physical Exam: General: Alert, oriented. No acute distress, sitting in chair Psych: Appropriate mood and affect Neuro: unable to move without difficulty post op HEENT: NC/AT CV: Irregular rate and rhythm Resp: Breath sounds clear bilaterally, no increased effort of breathing. Abdomen: Soft, nontender, nondistended. Extremities: swelling in right lower extremity Results & Data Results & Data Vital Signs (Past 12 Hours) Vital Signs Temp Pulse Pulse Resp BP BP Pulse Ox 02/25/24 16:53 69 02/25/24 14:50 36.5 C 80 18 146/70 H 98 02/25/24 10:52 36.7 C 71 18 130/71 98 02/25/24 07:31 78 02/25/24 07:10 36.5 C 72 18 130/75 96 O2 Del Method 02/25/24 16:53 02/25/24 14:50 Room Air 02/25/24 10:52 Room Air 02/25/24 07:31 02/25/24 07:10 Room Air (1) Femur fracture, right Encounter type: initial encounter Femur location: unspecified portion of femur Fracture morphology: unspecified fracture morphology Fracture type: closed Qualified Code(s): S72.91XA - Unspecified fracture of right femur, initial encounter for closed fracture
[2024-02-25] MEDS: POTASSIUM CHLORIDE PWD 20 MEQ PACK PO STA (20:54)
[2024-02-25] MEDS: NSS + 20MEQ KCL 20 MEQ/1,000 ML BAG IV ONE (20:55)
[2024-02-26 07:01] LABS: Hematocrit (blood only) 34.8 % (37.0-47.0); Hemoglobin 11.8 g/dl (12.0-16.0); Mean Corpuscular Hemoglobin 32.6 pg (25.0-34.0); Mean Corpuscular Hgb Conc 33.9 g/dL (32.0-36.0); Mean Corpuscular Volume 96.1 fL (80.0-100.0); Mean Platelet Volume 9.8 fL (9.4-12.4); Platelet Count 289 K/uL (130-400); RDW Standard Deviation 41.6 fL (36.4-46.3); Red Blood Count 3.62 M/uL (4.20-5.40); White Blood Count 6.92 K/ul (4.8-10.8)
[2024-02-26 07:21] LABS: BUN Creatinine Ratio 26.7 (10-20); Calcium 8.3 mg/dl (8.6-10.3); Est GFR (African American) 106.6 ml/min; Magnesium 1.9 mg/dl (1.7-2.4); Phosphorus 2.6 mg/dl (2.5-4.9); Potassium 4.2 mmol/L (3.5-5.1)
--- NOTE | 2024-02-26 12:54 | Discharge Summary ---
Discharge Summary Date of Service February 26, 2024 Principal Dx & Hospital Course #1 = Principal Diagnosis (1) Femur fracture, right: Pt is an 83yoF with PMHx significant for hypertension, anxiety, hypothyroidism, hyperlipidemia who presented with a mechanical fall 1 hour prior to presentation, found to have a right femur fracture. R femur fracture Patient reports that her knee buckled and she fell down. CBC was unremarkable. CMP revealed mild elevation of bilirubin to 1.9. Pelvic x-ray showed acute mildly displaced, significantly angulated intertrochanteric/subtrochanteric fracture of right femur. Chest x-rayno acute cardiopulmonary finding Orthopedics consulted, appreciate recs -s/p closed reduction and internal fixation on 02/18 -Currently POD #7 -Orthopedics recommended the following post-op: -DVT prophylaxis w/ ASA 81 mg BID. However pt developed atrial fibrillation (see below) and it was switched to Eliquis 5mg BID. -Con't PT/OT as tolerated. WBAT on RLE. -Pain well-controlled continue current regimen -Dressing may be taken off on POD#3; [place] to remain in place, cover w/ new dressing if there is drainage. -Follow-up outpatient with Dr. Bryant's team 10-12 days postop. Pain control, pt no longer required pain control after 02/19 PT OT initially recommending rehab, however pt progressed and home with home health services was recommended for discharge. PCP and orthopedics followup after discharge New onset atrial fibrillation Pt converted to a fib on 02/21 EKG obtained Echo noting EF 65-70%, mild tricuspid regurg Cardiology consulted, appreciate recs -continue home metoprolol 25mg BID -start Eliquis 5mg BID -hold aspirin while on Eliquis Cardiology follow up after discharge Chronic conditions; Hypertensioncontinue amlodipine, metoprolol Hypothyroidismcontinue levothyroxine Hyperlipidemia continue rosuvastatin Anxiety disordercontinue home meds Notes For Next Care Provider Please ensure followup with Cardiology and Orthopedics after discharge Medication Changes From Visit Eliquis 5mg BID for atrial fibrillation Admission HPI Per Admitting Provider History obtained from interview with the patient and chart review. Past medical history of hypertension, anxiety, hypothyroidism, hyperlipidemia Patient presents with mechanical fall 1 hour prior to presentation Patient reports that her knee buckled and she fell down. She started to have pain on her right hip and came to the ED. She denies injuries to any other body part, did not hit her head or lose consciousness. She reports some tingling sensation over her right thigh; denies any other focal weakness/numbness. She denies fever, chills, chest pain, shortness of breath or abdominal pain. On presentation to the ED, she was hypertensive ,saturating well in room air. CBC was unremarkable. CMP revealed mild elevation of bilirubin to 1.9. Pelvic x-ray showed acute mildly displaced, significantly angulated intertrochanteric/subtrochanteric fracture of right femur. ED contacted on-call orthopedic; recommended admission for possible intervention. Patient was referred to be admitted under medicine service. Past medical history as above Past surgical history; history of knee replacement, section, hysterectomy Social history; used to smoke occasionally; quit 50 years ago. Does not drink alcohol Family history; no pertinent family history Admission Exam Per Admitting Provider Constitutional: Alert oriented x 3; not in distress. Respiratory: Bilateral vesicular breath sound Cardiovascular: RRR, no murmur, no edema Vessels: no JVD or carotid bruit Chest: normal inspection of chest Abdomen: normal bowel sounds, soft, nontender, no hepatosplenomegaly Musculoskeletal: Swelling present on her right thigh; her leg is externally rotated. Pedal pulse intact Skin: no rashes, warm and dry normal turgor Neurologic: PERRL, EOMI, accommodation nl, no face palsy, no dysarthria CN's II- XI intact bilaterally and moves all extremities Psychiatric: A+Ox3, euthymic affect Discharge Exam General: Alert, oriented. No acute distress, sitting in chair Psych: Appropriate mood and affect Neuro: unable to move without difficulty post op HEENT: NC/AT CV: Irregular rate and rhythm Resp: Breath sounds clear bilaterally, no increased effort of breathing. Abdomen: Soft, nontender, nondistended. Extremities: swelling in right lower extremity Updated Medication List Medication Instructions Recorded Confirmed Type alprazolam 0.25 mg tablet 0.25 mg PO TID PRN Anxiety 02/18/24 02/18/24 History amlodipine 2.5 mg tablet 2.5 mg PO QPM 02/18/24 02/18/24 History amlodipine 2.5 mg tablet 5 mg PO QAM 02/18/24 02/18/24 History aspirin 81 mg tablet,delayed 81 mg PO DAILY 02/18/24 02/18/24 History release benzonatate 200 mg capsule 200 mg PO TID 02/18/24 02/18/24 History buspirone 7.5 mg tablet 7.5 mg PO BID 02/18/24 02/18/24 History esomeprazole magnesium 40 mg 40 mg PO DAILY 02/18/24 02/18/24 History capsule,delayed release ibandronate 150 mg tablet 150 mg PO MO 02/18/24 02/18/24 History levothyroxine 50 mcg tablet 50 mcg PO DAILY 02/18/24 02/18/24 History metoprolol tartrate 25 mg tablet 25 mg PO BID 02/18/24 02/18/24 History rosuvastatin 5 mg tablet 5 mg PO 3XWK 02/18/24 02/18/24 History apixaban 5 mg tablet (Eliquis) 5 mg PO BID #60 tabs 02/26/24 Rx Hospital Stay Data Consultations 02/18/24 15:56 Consult Orthopedic Surgery Routine 02/18/24 17:00 ED Decision to Admit Stat 02/22/24 15:10 Consult Cardiology Routine Procedures Performed Operation Date: 02/19/24 12:15 Actual Procedures p Right Troch Nail(Right) - Cain Bryant MD Diagnostic Imagining Performed 02/19/24 09:00 FL femur RT 2V Routine Chest X-Ray 02/18/24 15:56 SUPINE AP CHEST RADIOGRAPH CLINICAL HISTORY: Preoperative evaluation. COMPARISON STUDY: Chest radiograph May 14, 2014. FINDINGS: Lung volumes are normal. Lungs are clear. There is no pneumothorax or pleural effusion on supine exam. Cardiac size is normal. Mediastinal contours are normal. There is no evidence for pulmonary edema. IMPRESSION: No acute cardiopulmonary findings. ACT 112: Negative or not required by law. Electronically signed by: Brock Bar M.D. 02/18/2024 4:27 PM Femur X-Ray 02/18/24 15:57 XR femur RT 2V routine CLINICAL HISTORY: fall COMPARISON: Right knee radiographs July 27, 2014. FINDINGS: There is an acute moderately displaced, significantly angulated intertrochanteric/subtrochanteric fracture of the right femur. Associated soft tissue swelling is present. There is no distal right femoral fracture. Right knee arthroplasty is intact. No proximal right tibial or fibular fracture is present. IMPRESSION: 1. Acute displaced angulated intertrochanteric/subtrochanteric fracture of the right femur. 2. No distal right femoral fracture. Intact total right knee arthroplasty. ACT 112: Negative or not required by law. Electronically signed by: Brock Bar M.D. 02/18/2024 4:34 PM Pelvis X-Ray 02/18/24 15:57 XR pelvis 1-2V routine CLINICAL HISTORY: fall COMPARISON: None FINDINGS: Sacroiliac joints and symphysis pubis are intact. There are no acute fractures within the pelvis or left hip. There is an acute moderately displaced, significantly angulated intertrochanteric/subtrochanteric fracture of the right femur. IMPRESSION: Acute moderately displaced, significantly angulated intertrochanteric/subtrochanteric fracture of the right femur. ACT 112: Negative or not required by law. Electronically signed by: Brock Bar M.D. 02/18/2024 4:33 PM Femur X-Ray 02/19/24 09:00 FL femur RT 2V CLINICAL HISTORY: Right trochnail TECHNIQUE: 8 views were obtained with the C-arm in the OR with the above procedure. Total fluoroscopy time was 140.1 seconds. Radiation dose was 19.27 mGy. Comparison: Comparison is made to right femur radiograph 02/18/2024 FINDINGS/IMPRESSION: Intraoperative images were obtained of right trochanteric nail placement. Please correlate with intraoperative fluoroscopy and operative report. ACT 112: Negative or not required by law. Electronically signed by: Yoni Fajardo M.D. 02/19/2024 8:03 PM Femur X-Ray 02/19/24 18:11 XR femur RT 2V routine CLINICAL HISTORY: s/p right femur internal fixation TECHNIQUE: 2 radiographic views of the right femur were obtained. Comparison: Comparison is made to right femur radiograph 02/18/2024 FINDINGS: Postsurgical changes of right femur internal fixation. Fracture fragments are in near-anatomic alignment. A total knee arthroplasty is seen. IMPRESSION: Postsurgical appearance status post internal fixation of femoral fracture. ACT 112: Negative or not required by law. Electronically signed by: Yoni Fajardo M.D. 02/19/2024 7:18 PM Discharge Instructions Given to Patient (Per Discharging Provider) [place], We are discharging you home after surgery for your hip fracture. While you were in the hospital it was noted that you had atrial fibrillation. You were seen by the desk pen set assembler who recommended that you continue with your home metoprolol and the new blood thinner you were prescribed. Please keep close followup with orthopedics and Cardiology after discharge. Please also keep close follow up with your primary care provider after discharge. Please do not hesitate to come back to the emergency room if your symptoms worsen or return. It was a pleasure taking care of you while you were here. Total Time Total Time Spent Total Time Spent (In Minutes): 75
--- NOTE | 2024-02-27 22:35 | Electrocardiogram Report ---
Test Reason : Blood Pressure : / mmHG Vent. Rate : 073 BPM Atrial Rate : 241 BPM P-R Int : 000 ms QRS Dur : 066 ms QT Int : 378 ms P-R-T Axes : 000 006 036 degrees QTc Int : 416 ms Atrial fibrillation Abnormal ECG When compared with ECG of 22-FEB-2024 14:44, No significant change Confirmed by Yosvany Jackson ([id number]) on 02/27/2024 10:34:32 PM Referred By: Jose Luis Gorman Confirmed By:Yosvany Jackson
--- NOTE | 2024-02-28 06:53 | Coding Query ---
CODING QUERY To promote full compliance with coding requirements relating to patient care, provider participation is requested in all cases of fueler uncertainty. Please assist us with the question(s) below: Coding Question(s): The Operative Report on 02/19/24 documents, "Findings See Below Atypical subtrochanteric femoral shaft fracture with characteristic beaking, consistent with bisphosphonate-related fracture", as well as, "I recommended surgical stabilization of this complete fracture". Please specify below, in your clinical opinion, regarding the fracture: ( x ) Likely is Complete Transverse Atypical subtrochanteric femoral shaft fracture with characteristic beaking, consistent with bisphosphonate-related fracture. ( ) Likely is Complete Oblique Atypical subtrochanteric femoral shaft fracture with characteristic beaking, consistent with bisphosphonate-related fracture. ( ) Likely is Other Oblique Atypical subtrochanteric femoral shaft fracture with characteristic beaking, consistent with bisphosphonate-related fracture. Please Specify: ( ) Likely is Unspecified Atypical subtrochanteric femoral shaft fracture with characteristic beaking, consistent with bisphosphonate-related fracture. ( ) Atypical femoral fracture is Ruled-Out ( ) Other: Please Specify Physician's Response(s): Thank you Bailey Leonardo Principal Diagnosis: "that condition established after study, to be chiefly responsible for occasioning the admission of the patient to the hospital for care." Co-Existing Principal Diagnosis: "when two or more diagnoses equally meet the criteria for principal diagnosis as determined by the circumstances of admission, diagnostic work up, and/or therapy provided, and the Alphabetic Index, Tabular List, or another coding guideline does not provide sequencing direction, any one of the diagnoses may be sequenced first." "When the physician has documented what appears to be a current diagnosis in the body of the record, but has not included the diagnosis in the final diagnostic statement, the physician should be asked whether the diagnosis should be added." ([facility] 2 QTR90. p3-4) JOSE
--- NOTE | 2024-02-28 06:58 | Coding Query ---
CODING QUERY To promote full compliance with coding requirements relating to patient care, provider participation is requested in all cases of councilor uncertainty. Please assist us with the question(s) below: Coding Question(s): Beginning on the H&P and continued in Hospitalist Progress Notes and Discharge Summary, there is documentation of, "CMP revealed mild elevation of bilirubin to 1.9". Please specify below, regarding the CMP finding of mild elevation of bilirubin: ( X ) mild elevation of bilirubin was monitored during this admission ( ) mild elevation of bilirubin was not monitored or was insignificant Physician's Response(s): Thank you Bailey Leonardo Principal Diagnosis: "that condition established after study, to be chiefly responsible for occasioning the admission of the patient to the hospital for care." Co-Existing Principal Diagnosis: "when two or more diagnoses equally meet the criteria for principal diagnosis as determined by the circumstances of admission, diagnostic work up, and/or therapy provided, and the Alphabetic Index, Tabular List, or another coding guideline does not provide sequencing direction, any one of the diagnoses may be sequenced first." "When the physician has documented what appears to be a current diagnosis in the body of the record, but has not included the diagnosis in the final diagnostic statement, the physician should be asked whether the diagnosis should be added." ([facility] 2 QTR90. p3-4) JOSE
== END 2024-02-26 14:50 | disposition home health service (06) | DRG 481 ==
LOC: ED 15:39 → SUATTDRO 17:50 → 2N 17:50